=== PATIENT | male | born 1965 | race Caucasian/White ===

== ENCOUNTER 2024-04-07 08:41 | Emergency (ER) | payer OTHER, SELFPAY ==
--- NOTE | ~2024-04-07 | XR_ITS ---
EXAMINATION: XR chest 2V DATE: 04/07/2024 09:27 INDICATION: Cough. TECHNIQUE: Frontal and lateral views of the chest were obtained. COMPARISON: None. FINDINGS: There are airspace opacities in left upper lobe. No pleural effusion or pneumothorax. The h eart size is normal. IMPRESSION: 1. Airspace opacities in left upper lobe, consistent with pneumonia. Follow-up radiographs are recomm ended to confirm resolution. Reviewed, dictated and finalized at location A. [employer] IMPRESSION: 1. Airspace opacities in left upper lobe, consistent with pneumonia. Follow-up radiographs are recommended to confirm resolution.
[2024-04-07 08:46] VITALS: BP 143/80; PULSE 88; RESP 24; TEMP 37.3; O2SAT 91
[2024-04-07 08:58] VITALS: BP 143/80; PULSE 88; RESP 24; TEMP 37.3; O2SAT 91
--- NOTE | 2024-04-07 08:58 | ED_ITS ---
HPI - SOB/Dyspnea General Chief Complaint: Shortness of Breath/Dyspnea Stated Complaint: Cough/Shortness of Breath Time Seen by Provider: 04/07/24 08:58 Source: patient and RN notes reviewed Mode of arrival: ambulatory Limitations: no limitations History of Present Illness HPI Narrative: 58-year-old male presents with concern of for shortness of breath, cough for 2 days. Reports family members have had similar symptoms. He reports he had pneumonia in January that he was treated with a Z-Bhavesh with and I did not work so we had to get doxycycline. He reports he carries a pulse ox with him to monitor his oxygen level since he had pneumonia in January. He reports typically his oxygen level is 95-98 when he is feeling well. He denies fever. Reports cough and shortness of breath. MD elicited complaint: shortness of breath Related Data Home Medications Medication Instructions Recorded Confirmed albuterol sulfate 90 mcg/actuation inhalation 04/07/24 aerosol inhaler amlodipine 2.5 mg tablet mg 04/07/24 atorvastatin 40 mg tablet mg 04/07/24 carvedilol 6.25 mg tablet mg 04/07/24 clopidogrel 75 mg tablet mg 04/07/24 fluticasone furoate 100 inhalation 04/07/24 mcg-vilanterol 25 mcg/dose inhalation powder (Breo Ellipta) hydrocodone 10 mg-acetaminophen tablet 04/07/24 325 mg tablet lisinopril 20 mg tablet mg 04/07/24 zolpidem 10 mg tablet mg 04/07/24 Allergies Allergy/AdvReac Type Severity Reaction Status Date / Time Penicillins Allergy Unknown Verified 04/07/24 08:54 Review of Systems Review of Systems: CONSTITUTIONAL: Denies malaise, chills, sweats, or fever. EYES: Denies visual changes, redness, or discharge. ENT: Denies rhinorrhea, congestion, sinus pain, otalgia and sore throat. CARDIOVASCULAR: Denies chest pain, palpitations, or edema. RESPIRATORY: Reports cough, situational dyspnea. GASTROINTESTINAL: Denies abdominal pain, nausea, vomiting, diarrhea SKIN: Denies rash or itching. MUSCULOSKELETAL: Denies myalgia. NEUROLOGIC: Denies headache. All systems reviewed & are unremarkable except as noted in HPI and below PMFSH Comments At time of signature, agree with nursing past medical, surgical, social and family history. There is no relevant family history pertinent to the presenting complaint Exam Narrative: GENERAL: Well-appearing, well-nourished, and in no acute distress. HEAD: Normocephalic EYES: PERRLA, conjunctivae clear ENT: Nares clear. Mucous membranes moist. TM pearly walton with sharp light reflex bilaterally; no tragal tenderness. Oropharynx not erythematous without lesions. Tonsils not enlarged and without exudate, no drooling, no hoarseness, no trismus, uvula midline. NECK: Supple. No lymphadenopathy CHEST: Scattered wheeze and rhonchi, aeration is fair. No rales, or stridor. No respiratory distress, speaks in full sentences. HEART: Regular rate and rhythm. No murmur heard. SKIN: Warm, dry, no rash. NEURO: Alert and oriented x3. PSYCH: Normal mood and affect Course Course Emergency Course: Patient is aware of diagnosis, understands and agrees to treatment plan. Anticipatory guidance given. Patient agrees to follow-up as directed and is aware of reasons to seek care at the emergency department. Portions of this record may have been created with voice recognition software Level of Care: Express Care Visit Reevaluation(s) Reevaluation #1: Wheezing is improved, aeration is improved after DuoNeb. Patient remains on 2 L nasal cannula. Patient's pulse ox is 93 on 2 L nasal cannula. I advised patient of the finding of pneumonia on his x-ray, advised him that he should go to the emergency room due to his pulse ox of 93 on 2L oxygen. Patient reports that he goes to the emergency room all the time and leaves AMA, he is refusing going to the emergency room at this time. I advised him that if his symptoms do not improve or worsen he needs to go to the emergency room. Patient has a pulse oximeter that he carries with him and monitors his pulse ox regularly, I advised and his pulse ox remains below 90 he needs to go to the emergency room. He expresses understanding. Patient has nebulizer and inhaler at home and says he has plenty of solution for the nebulizer. Date: 04/07/24 Time: 09:36 Vital Signs Vital signs: Vital Signs Temperature 99.2 F 04/07/24 08:46 Pulse Rate 88 04/07/24 08:46 Respiratory Rate 24 H 04/07/24 08:46 Blood Pressure 143/80 H 04/07/24 08:46 Pulse Oximetry 91 04/07/24 08:46 Oxygen Flow Rate 2 04/07/24 08:46 Temperature 99.2 F 04/07/24 08:58 Pulse Rate 88 04/07/24 08:58 Respiratory Rate 24 H 04/07/24 08:58 Blood Pressure 143/80 H 04/07/24 08:58 Pulse Oximetry 91 04/07/24 08:58 Oxygen Flow Rate 2 04/07/24 08:58 Reviewed. MDM - SOB/Dyspnea Lab Data Attestation: I reviewed the patient's lab results. Imaging Data My impression: Images reviewed, interpreted by radiologist, agree, see report. Radiologist's impression: EXAMINATION: XR chest 2V DATE: 04/07/2024 09:27 INDICATION: Cough. TECHNIQUE: Frontal and lateral views of the chest were obtained. COMPARISON: None. FINDINGS: There are airspace opacities in left upper lobe. No pleural effusion or pneumothorax. The heart size is normal. IMPRESSION: 1. Airspace opacities in left upper lobe, consistent with pneumonia. Follow-up radiographs are recommended to confirm resolution. Critical Care Time Critical Care Time Critical Care Time: No Discharge Plan Discharge Clinical Impression: Pneumonia Patient Disposition: Home, Self-Care Condition: Stable Instructions: Antibiotic Form, Pneumonia (ED) Additional Instructions: Pneumonia is a lung infection that can cause a fever, cough, and trouble b reathing. Please continue all antibiotics as directed until complete. Nutrition is important - eat small frequent meals. Get lots of rest and drink fluids. Call your Primary Care Doctor upon arrival home from the hospital and make a follow- up appointment in 3-5 days. If your cough worsens, you develop a persistent fever you develop shaking chills, a fast heartbeat, trouble breathing and/or feel you are are breathing much faster than usual, call your Primary Care Doctor or go to the ER. Make sure you wash your hands frequently. Please continue to monitor yourpulse ox level. If it is below 90 you should go to the emergency room. If your symptoms worsen or do not improve you should go to the emergency room. Prescriptions: New prednisone 20 mg tablet 40 mg PO DAILY 5 Days Qty: 10 0RF levofloxacin 750 mg tablet 750 mg PO DAILY 7 Days Qty: 7 0RF No Action atorvastatin 40 mg tablet carvedilol 6.25 mg tablet lisinopril 20 mg tablet amlodipine 2.5 mg tablet clopidogrel 75 mg tablet hydrocodone-acetaminophen 10-325 mg tablet zolpidem 10 mg tablet albuterol sulfate 90 mcg/actuation HFA aerosol inhaler INHALATION fluticasone furoate-vilanterol [Breo Ellipta] 100-25 mcg/dose blister with device INHALATION Follow-up/Referrals: PHYSICIAN NOT ON STAFF,NONSTAFF [Primary Care Provider] - Time of Disposition: 09:41
[2024-04-07] MEDS: IPRATROPIUM 0.5 MG/ALBUTEROL SULFATE 2.5 MG AMPUL.NEB 3 ML INHALATION (09:07)
[2024-04-07 09:20] VITALS: PULSE 88; RESP 18; O2SAT 93
--- NOTE | 2024-04-07 09:22 | PC.NURSE ---
After treatment SPO2 91% increase O2 to 3L per NC
== END 2024-04-07 09:48 | disposition home or self-care (01) ==
PROVIDERS: Emergency Provider Nurse Practitioner
DX: J18.9 Pneumonia, unspecified organism (principal); J44.9 Chronic obstructive pulmonary disease, unspecified; I10 Essential (primary) hypertension; E78.00 Pure hypercholesterolemia, unspecified; Z86.73 Personal history of transient ischemic attack (TIA), and cerebral infarction without residual deficits; Z86.16 Personal history of COVID-19
CPT/HCPCS: 71046; 94640; 99213; G0463

== ENCOUNTER 2024-06-30 11:06 | Emergency (ER) | payer OTHER, SELFPAY ==
--- NOTE | ~2024-06-30 | XR_ITS ---
EXAMINATION: XR chest 2V DATE: 06/30/2024 12:44 INDICATION: Shortness of breath. Cough. TECHNIQUE: Frontal and lateral views of the chest were obtained. COMPARISON: Chest 2 views 04/07/2024 FINDINGS: There are airspace opacities in left upper lobe. No pleural effusion or pneumothorax. The h eart size is normal. IMPRESSION: 1. Persistent airspace opacities in left upper lobe, consistent with pneumonia. Chest CT with contras t is recommended to exclude left hilar mass. Reviewed, dictated and finalized at location A. EGE SERVICE OFFICER IMPRESSION: 1. Persistent airspace opacities in left upper lobe, consistent with pneumonia. Chest CT with contrast is recommended to exclude left hilar mass.
[2024-06-30 11:11] VITALS: BP 136/85; PULSE 82; RESP 16; TEMP 36.3; O2SAT 96
--- NOTE | 2024-06-30 12:32 | ED_ITS ---
HPI - URI/Sore Throat General Chief Complaint: Upper Respiratory Infection Stated Complaint: Shortness of Breath/Cough/Runny Nose Time Seen by Provider: 06/30/24 12:10 Source: patient, RN notes reviewed and old records reviewed Mode of arrival: ambulatory Limitations: no limitations History of Present Illness HPI Narrative: 59 year old male who presents to [facility] care with complaints of feeling some shortness of breath and having cough since Sunday with increased wheezing noted. Patient reports that he has history of asthma and also COPD and he has been using his inhalers as prescribed. Patient reports that he has felt hot and cold but has not had a fever. Patient reports that he had Pneumonia in March and was treated with 2 different antibiotics with Doxycycline finally clearing pneumonia. Patient reports that he did quit smoking in March after smoking for many years. MD elicited complaint: cough and other (shortness of breath decreased appetite.) Pertinent past history: pneumonia, COPD and asthma Onset (ago): day(s) (4) Consistency: constant Severity: moderate Able to tolerate fluids by mouth: Yes Treatments prior to arrival: other (inhalers) Related Data Home Medications ?Medication ?Instructions ?Recorded ?Confirmed ?Last Taken ?Type albuterol sulfate 90 mcg/actuation inhalation 04/07/24 Unknown History aerosol inhaler amlodipine 2.5 mg tablet mg 04/07/24 Unknown History atorvastatin 40 mg tablet mg 04/07/24 Unknown History carvedilol 6.25 mg tablet mg 04/07/24 Unknown History clopidogrel 75 mg tablet mg 04/07/24 Unknown History fluticasone furoate 100 inhalation 04/07/24 Unknown History mcg-vilanterol 25 mcg/dose inhalation powder (Breo Ellipta) hydrocodone 10 mg-acetaminophen tablet 04/07/24 Unknown History 325 mg tablet zolpidem 10 mg tablet mg 04/07/24 Unknown History ipratropium 20 mcg-albuterol 100 inhalation 06/30/24 Unknown History mcg/actuation mist for inhalation (Combivent Respimat) pioglitazone 15 mg tablet mg 06/30/24 Unknown History Allergies Allergy/AdvReac Type Severity Reaction Status Date / Time Penicillins Allergy Unknown Verified 06/30/24 11:19 Review of Systems Review of Systems: CONSTITUTIONAL: Reports malaise, has felt hot and cold with no known fevers. EYES: Denies visual changes, redness, or discharge. ENT: Reports rhinorrhea, congestion,no sinus pain, no otalgia and no sore throat. CARDIOVASCULAR: Denies chest pain, palpitations, or edema. RESPIRATORY: Reports cough.?with some increased dyspnea. GASTROINTESTINAL: Denies abdominal pain, nausea, vomiting, diarrhea, reports [id number] appetite SKIN: Denies rash or itching. MUSCULOSKELETAL: Denies myalgia. NEUROLOGIC: Denies headache. All systems reviewed & are unremarkable except as noted in HPI and below PMFSH Past Medical History Medical History (Updated 07/02/24 @ 11:47 by Merle Alvarez NP) Diabetes Elevated cholesterol Hypertension CVA (cerebral vascular accident) COPD (chronic obstructive pulmonary disease) Asthma Social History Social History (Updated 07/02/24 @ 11:48 by Merle Alvarez NP) Smoking status: Former smoker Tobacco type: cigarettes Additional smoking assessment comments: quit in March of 2024 after smoking many years Alcohol intake: current Alcohol use details: social Substance use type: does not use Gender identity (if verbalized by the patient): Male Comments At time of signature, agree with nursing past medical, surgical, social and family history. There is no relevant family history pertinent to the presenting complaint Exam Narrative: GENERAL: ill-appearing, well-nourished, and in no acute distress. HEAD: Normocephalic EYES: PERRLA, conjunctivae clear ENT: Nares clear, turbinates edematous and erythematous, clear discharge. Mucous membranes moist. TM pearly [place] with dull light reflex bilaterally; no tragal tenderness. Oropharynx erythematous without lesions. Tonsils not enlarged and without exudate, no drooling, no hoarseness, no trismus, uvula midline.post nasal drainage NECK: Supple. No lymphadenopathy CHEST: Scattered wheezing with rhonchi left lung [place]., breath sounds equal.+ wheezing,+ left lung [place] rhonchi, no rales, or stridor. No respiratory distress, speaks in full sentences. reports feels shortness of breath no tachypnea. SAO2 96% on room air HEART: Regular rate and rhythm. No murmur heard. SKIN: Warm, dry, no rash. NEURO: Alert and oriented x3. PSYCH: Normal mood and affect anxious Course Course Emergency Course: Patient is aware of diagnosis, understands and agrees to treatment plan.? Anti cipatory guidance given.? Patient agrees to follow-up as directed and is aware of reasons to seek care at the emergency department. Portions of this record may have been created with voice recognition software Level of Care: Express Care Visit Vital Signs Vital signs: Vital Signs Temperature 36.3 C L 06/30/24 11:11 Pulse Rate 82 06/30/24 11:11 Respiratory Rate 16 06/30/24 11:11 Blood Pressure 136/85 06/30/24 11:11 Pulse Oximetry 96 06/30/24 11:11 Oxygen Delivery Room Air 06/30/24 11:11 Temperature 36.3 C L 06/30/24 11:11 Pulse Rate 82 06/30/24 11:11 Respiratory Rate 16 06/30/24 11:11 Blood Pressure 136/85 06/30/24 11:11 Pulse Oximetry 96 06/30/24 11:11 Oxygen Delivery Room Air 06/30/24 11:11 Reviewed MDM - URI/Sore Throat MDM Narrative Medical decision making narrative: Differential diagnosis considered: Azul virus, strep pharyngitis, allergic rhinitis, upper respiratory tract infection, sinusitis, rhinosinusitis, nasopharyngitis. viral pharyngitis, otitis media, otitis externa, pneumonia, bronchitis, viral cough syndrome, viral syndrome, and influenza.? Exam findings show no acute concerns or changes; patient is non-toxic appearing and is in no distress.? Patient is appropriate for outpatient treatment and follow- up.Reviewed results of CT scan and states he will follow up with his PCP in regards of getting CT. 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 Differential Diagnosis Differential diagnosis: Likely upper respiratory infection, viral infection, bronchitis, influenza and other (COVID acute cough, pneumonia) Medical Records Attestation: I reviewed the patient's medical records. Lab Data Attestation: I reviewed the patient's lab results. Lab results narrative: Influenza A negative, Influenza B negative, COVID antigen negative Labs: Lab Results 06/30/24 Range/Units 11:18 POC Influenza A Ag Negative (Negative) POC Influenza B Ag Negative (Negative) POC SARS CoV-2 Ag Negative (Negative) reviewed Imaging Data Attestation: I personally reviewed and interpreted this imaging study as follows: My impression: left upper lobe pneumonia recommend CT scan to exclude left hilar mass Radiologist's impression: [facility] [address] [place] [address] XRay Report Signed Patient: Vidal Hendricks : 1965 MR#: [id number] Age: 59 Acct:[id number] Loc: [facility] ADM Date: 06/30/24Attending Dr: Ordering Physician: Merle Alvarez APRN Date of Service: 06/30/24 Procedure(s): XR chest 2V Accession Number(s): [id number] cc: Merle Alvarez APRN~ EXAMINATION: XR chest 2V DATE: 06/30/2024 12:44 INDICATION: Shortness of breath. Cough. TECHNIQUE: Frontal and lateral views of the chest were obtained. COMPARISON: Chest 2 views 04/07/2024 FINDINGS: There are airspace opacities in left upper lobe. No pleural effusion or pneumothorax. The heart size is normal. IMPRESSION: 1. Persistent airspace opacities in left upper lobe, consistent with pneumonia. Chest CT with contrast is recommended to exclude left hilar mass. Reviewed, dictated and finalized at location A. [employer] ASSISTANT Please be advised this is a medical document. It is intended for [id number] communication. It is written in medical language and may contain unfamiliar abbreviations or verbiage. Medical documents are intended to carry relevant information, facts as evident, and the clinical opinion of the practitioner at the time of the encounter. This report may have been done utilizing a voice recognition system. Attempts have been made to correct errors. However, there may be uncorrected grammatical, spelling, and recognition errors present. The file time of this note does not necessarily represent the time of service. Dictated By: Ulisses Chambers MD 06/30/24 1247 Signed By: <Electronically signed by Ulisses Chambers MD in OV> Critical Care Time Critical Care Time Critical Care Time: No Discharge Plan Discharge Clinical Impression: Left upper lobe pneumonia Qualifiers: Pneumonia type: due to unspecified organism Qualified Code(s): J18.9 - Pneumonia, unspecified organism Patient Disposition: Home, Self-Care Condition: Stable Instructions: Antibiotic Form, Pneumonia (ED) Additional Instructions: Increase fluids especially juices and water [id number] cough and cold medicine of your choice for your symptoms Mucinex daily make sure you are drinking plenty of fluids with this med Continue your inhaler/nebulizer as directed Steroids as directed--take with food heat to the face 20-30 minutes 4-6 times a day for pain Salt water gargles, throat lozenges or throat sprays as desired Antibiotic as directed--finished the medication If your symptoms persist, change or worsen significantly before you can contact your personal physician then please, without delay, go to the emergency department for further evaluation. Follow-up with PCP in 7-10 days or sooner if needed Follow up with PCP soon in regards to your blood pressure which is elevated above threshold for referral. Blood pressure above 120/80 may indicate pre- hypertension. Blood pressure 136/85 Patient Language: [place] Prescriptions: New prednisone 20 mg tablet 20 mg PO BID Qty: 10 0RF doxycycline hyclate 100 mg tablet 100 mg PO BID Qty: 20 0RF benzonatate 200 mg capsule 200 mg PO TID PRN (Reason: cough) Qty: 20 0RF No Action atorvastatin 40 mg tablet carvedilol 6.25 mg tablet amlodipine 2.5 mg tablet clopidogrel 75 mg tablet hydrocodone-acetaminophen 10-325 mg tablet zolpidem 10 mg tablet albuterol sulfate 90 mcg/actuation HFA aerosol inhaler INHALATION fluticasone furoate-vilanterol [Breo Ellipta] 100-25 mcg/dose blister with device INHALATION pioglitazone 15 mg tablet Combivent Respimat 20-100 mcg/actuation mist INHALATION Follow-up/Referrals: PHYSICIAN NOT ON STAFF,NONSTAFF [Primary Care Provider] - Time of Disposition: 13:04 Quality Darcie Coma Scale Eyes: Open Verbal: Oriented and Alert Motor: Follows Commands [place] Coma Total Score: 15
[2024-06-30 13:36] LABS: EDCOVIDSCREEN Negative (Negative); EDINFLUASCREEN Negative (Negative); EDINFLUBSCREEN Negative (Negative)
--- OUTSIDE RECORDS SUMMARY | 2024-06-30 14:10 | XMS_ITS | Clinical Summary ---
Author Organization [email or web address] Address [address] [place] [address] Care Team Providers Care Small Products Ii Assembler Name Role Phone Obey Todd MD Unavailable Kan Lanier MD Primary Care Provider [phone] Azul Correa OD Unavailable Source Comments [email or web address],non-owned Affiliates and Associated Physician Practices is amultiple site organization consisting of ambulatory clinics and hospital sitesin [place], [place], [place] and [place]. This disclosure is being madepursuant to the Care Everywhere program and may not contain all information available regarding this patient. Last updated 18.[email or web address] Allergies Active Allergy Reactions Criticality Noted Date Comments Amoxicillin 03/15/2017 Nortriptyline Psychiatric Medium 03/15/2017 Penicillins Anaphylaxis High 09/29/2016 Tapentadol Vision Changes Medium 05/22/2017 splits vision Medications * Be aware that medications may not be up to date on this document. Alwaysverify current medications with the patient. Medication Sig Dispensed Refills Start Date End Date Status HYDROcodone-acet aminophen (NORCO) 10-325 MG tablet Take 1 (one) tablet by mouth 4 times daily as needed 11/17/2017 Active atorvastatin (Lipitor) 40 MG tablet Take 1 (one) tablet by mouth at bedtime 90 tablet 3 10/01/2023 Active carvedilol (Coreg) 6.25 MG tablet Take 1 (one) tablet by mouth once daily 90 tablet 1 10/01/2023 Active albuterol HFA (Proventil; Ventolin; Proair) 108 (90 Base) MCG/ACT inhaler INHALE 2 PUFFS BY MOUTH EVERY 6 HOURS NEEDED 18 g 01/02/2024 Active clopidogrel (plaVIX) 75 MG tablet TAKE 1 TABLET BY MOUTH DAILY 90 tablet 05/05/2024 Active Breo Ellipta 100-25 MCG/ACT inhaler INHALE 1 PUFF BY MOUTH DAILY 180 Each 05/16/2024 Active zolpidem (Ambien) 10 MG tabletIndication s:Insomnia, unspecified type Take 1 (one) tablet by mouth nightly as needed For insomnia. 90 tablet 05/20/2024 Active amLODIPine (Norvasc) 2.5 MG tabletIndication s:Lipid screening TAKE 1 TABLET BY MOUTH TWICE DAILY 30 tablet 06/13/2024 Active albuterol-ipratr opium (Combivent Respimat) 20-100 MCG/ACT inhaler Inhale 2 (two) puffs by mouth every 6 hours as needed for Wheezing (or chronic obstructive lung disease) 4 g 06/19/2024 Active Combivent Respimat 20-100 MCG/ACT inhaler INHALE 2 PUFFS BY MOUTH EVERY 6 HOURS NEEDED FOR WHEEZING OR CHRONIC OBSTRUCTIVE LUNG DISEASE 4 g 1 06/19/2024 Active pioglitazone (Actos) 15 MG tablet TAKE 1 TABLET BY MOUTH EVERY DAY 30 tablet 06/25/2024 Active amLODIPine (Norvasc) 2.5 MG tabletIndication s:Lipid screening Take 1 (one) tablet by mouth 2 times daily 180 tablet 1 10/01/2023 5 Discontinued Combivent Respimat 20-100 MCG/ACT inhaler INHALE 2 PUFFS BY MOUTH EVERY 6 HOURS NEEDED FOR WHEEZING OR CHRONIC OBSTRUCTIVE LUNG DISEASE 4 g 1 04/22/2024 5 Discontinued pioglitazone (Actos) 15 MG tablet TAKE 1 TABLET BY MOUTH EVERY DAY 30 tablet 05/16/2024 5 Discontinued Active Problems Problem Noted Date Diagnosed Date Opioid use 01/18/2024 Controlled type 2 diabetes m ellitus with microalbuminuria, without long-term current use of insulin 09/21/2023 Hyperlipidemia 08/17/2021 Type 2 diabetes mellitus wit h hyperglycemia, without long-term current use of insulin 01/21/2021 Occlusion of right vertebral artery 08/13/2020 Cerebral aneurysm, nonruptured 07/05/2020 Thoracoabdominal aortic aneurysm (TAAA) without rupture 03/20/2019 Screening for colorectal cancer 08/27/2018 Cervical spinal stenosis 05/22/2017 HTN (hypertension), benign 03/15/2017 Chronic neck pain 03/15/2017 Tobacco abuse 03/15/2017 Resolved Problems Problem Noted Date Diagnosed Date Resolved Date Opioid dependence with opioi d-induced disorder 01/18/2024 01/18/2024 Encounters Date Type Department Care Team Description 06/23/[address] [address] Kan Lanier MD Refill Request 06/19/[address] [address] Kan Lanier MD MEDICATION REFILL 06/18/[address] [address] Desiree Knight, AMBULETTE DRIVER-SOLICITING FREIGHT AGENT Refill Request 06/17/[address] [address] Kan Lanier MD Refill Request 06/13/[address] [address] Kan Lanier MD Refill Request 05/20/[address] [address] Kan Lanier MD MEDICATION REFILL 05/15/[address] [address] Kan Lanier MD Refill Request 05/09/[address] [address] Kan Lanier MD Refill Request 05/02/2024 Refill [facility] [address] [facility] [facility] [place] [address] Kan Lanier MD Refill Request 04/19/2024 Refill [facility] [address] [facility] [place] [address] Desiree Knight, AMBULETTE DRIVER-SOLICITING FREIGHT AGENT Refill Request from Last 3 Months Immunizations Name Administration Dates Next Due INFLUENZA VACCINE, TRIV. (AF LURIA, FLUZONE TRIVALENT; 6MO+) (IIV3) 01/12/2010 COVID PFIZER 12+YR 30MCG/0.3mL 03/23/2023 COVID PFIZER BIVALENT 12Y+ 30mcg/0.3ML Covid Moderna primary monova lent 12+ yr 0.5mL 05/04/2021,10/25/2020,09/27/2020 INFLUENZA VACCINE 03/14/2018 INFLUENZA VACCINE, CELL CULT URE, QUADR. (FLUCELVAX QUADRIVALENT; 6MO+) (CCIIV4) 05/04/2021 INFLUENZA VACCINE, QUADR. (A FLURIA, FLUZONE QUADRIVALENT; 6MO+) (IIV4) 03/15/2017 INFLUENZA VACCINE, QUADR. (F LUZONE; FLULAVAL; FLUARIX; AFLURIA QUADRIVALENT; 6MO+), 0.5 ML (IIV4) 03/23/2023,02/28/2022,02/19/2019 PNEUMOCOCCAL PPSV23 03/15/2017,09/11/2008 TD (AGE 7-ADULT) 05/14/2003 TDAP (7yrs+) 10/30/2015,03/15/2015 iNFLUENZA VACCINE, RECOM-THOMPSON, QUADR. (FLUBLOCK QUADRIVALENT; 18Y+) (RIV4) 04/07/2020 Family History Relation Name Status Comments Brother Alive Father Alive Mother Alive Sister Alive Social History Tobacco Use Types Packs/Day Years Used Date Smoking Tobacco: Every Day Cigarettes 1 10 Started: 2002; Last attempted to quit: 2012 Smokeless Tobacco: Never Tobacco Cessation:Ready to Q uit: Not Asked; Counseling Given: Not Answered Alcohol Use Standard Drinks/Week Comments No 0 (1 standard drink = 0.6 oz pur e alcohol) PHQ-2 Answer Date Recorded Patient Health Questionnaire-2 Score 0 01/17/2024 Sex and Gender Information Value Date Recorded Sex Assigned at Not on file Gender Identity Not on file Sexual Orientation Not on file Last Filed Vital Signs Vital Sign Reading Time Taken Comments Blood Pressure 124/70 01/18/2024 9:52 AM CDT Pulse 80 01/18/2024 9:52 AM CDT Temperature 36.6 C (97.8 F) 04/13/2022 3:02 PM CANTEEN ATTENDANT Respiratory Rate 16 12/29/2020 2:27 PM CDT Oxygen Saturation 96% 01/18/2024 9:52 AM CDT Inhaled Oxygen Concentration - - Weight 78.9 kg (174 lb) 01/18/2024 9:52 AM CDT Height 177.8 cm (5' 10 ) 01/18/2024 9:52 AM CDT Body Mass Index 24.97 01/18/2024 9:52 AM CDT Plan of Treatment Health Maintenance Due Date Last Done Comments COLOGUARD (AGES 45-75) - COLON CA SCREENING 1965 CT COLONOGRAPHY - COLON CA SCREENING 1965 FIT - COLON CA SCREENING 1965 FLEX SIG - COLON CA SCREENING 1965 ZOSTER VACCINE (1 of 2) 2013 PNEUMOCOCCAL VACCINE 50+ (2 of 2 - PCV) 03/15/2018 03/15/2017, 09/11/2008 Respiratory Syncytial Virus (RSV) Vaccine Pt: or over 60 yrs (1 - Risk 60-74 years 1-dose series) 2023 COLON MONITORING 09/10/2023 09/09/2018, 09/09/2018 Colorectal Cancer Screening 09/10/2023 COVID-19 VACCINE ( season) 2024 03/23/2023, 03/01/2022, 05/04/2021, Additional history exists INFLUENZA VACCINE (#1) 2024 , 02/28/2022, 05/04/2021, Additional history exists DIABETES-HGB A1C 03/23/2024 09/21/2023, , 09/19/2022, Additional history exists DEPRESSION SCREENING 05/14/2024 09/21/2023, 09/19/2022, 02/28/2022 DIABETES - URINE PROTEIN SCREENING 05/14/2024 09/21/2023, 04/26/2023, 09/19/2022, Additional history exists DIABETES RETINOPATHY SCREENING 06/06/2024 06/06/2022 DIABETES-FOOT EXAM WITH MONOFILAMENT 09/20/2024 09/21/2023 DIABETES-SERUM CREATININE 12/28/20242023, 12/29/2023, 09/21/2023, Additional history exists DTAP/TDAP/TD VACCINES (4 - Td or Tdap) 10/29/2025 10/30/2015, 03/15/2015, 05/14/2003 COLONOSCOPY - COLON CA SCREENING 09/09/2028 09/09/2018, 09/09/2018 HEPATITIS C SCREENING Completed 03/15/2017 HIV SCREENING Completed 09/21/2023 HEPATITIS B VACCINE Aged Out No longe r eligible based on patient's age to complete this topic HIB VACCINE Aged Out No longer eligi ble based on patient's age to complete this topic HPV VACCINE Aged Out No longer eligi ble based on patient's age to complete this topic MENINGOCOCCAL (Group B) VACCINE Aged Out No longer eligible based on patient's age to complete this topic MENINGOCOCCAL VACCINE Aged Out No justin shirley eligible based on patient's age to complete this topic Goals Goal Patient Goal Type Associated Problems Recent Progress Patient-Stated? Author Blood Pressure < 140/90 Blood Pressure 124/70(2023 9:52 AM CDT) No Meseret Perez MA Quit smoking / using tobacco Lifestyle Not on track( 018 8:12 AM CDT) No Meseret Perez MA Procedures Procedure Name Priority Date/Time Associated Diagnosis Comments MICROALB/CREAT RATIO URINE RANDOM PANEL Routine 09/21/2023 8:59 AM CDT Controlled type 2 diabetes mellitus with hyperglycemia, without long-term current use of insulin (HCC) GENERAL HEALTH PANEL Routine 09/21/2023 8:59 AM CDT HTN (hypertension), benign Controlled type 2 diabetes mellitus with hyperglycemia, without long-term current use of insulin (HCC) Hyperlipidemia, unspecified hyperlipidemia type Preventative health care HEMOGLOBIN A1C Routine 09/21/2023 8:59 AM CDT Controlled type 2 diabetes mellitus with hyperglycemia, without long-term current use of insulin (HCC) Preventative health care HIV-1 HIV-2 ANTIBODY + HIV P24 AG PANEL Routine 09/21/2023 8:59 AM CDT Preventative health care EYE EXAM 06/06/2022 ENDOSCOPY, COLON, SCREENING Routine 09/09/2018 2:28 PM CDT Screening for colorectal cancer HEPATITIS C ANTIBODY Routine 03/15/2017 8:59 AM CDT Encounter for hepatitis C screening test for low risk patient from Last 3 Months or Most Recently Relevant to Health Maintenance Results * HIV-1 HIV-2 ANTIBODY + HIV P24 AG PANEL (09/21/2023 8:59 AM CDT) HIV Screen 4th Generation w Reflex Non Reactive Non Reactive [facility] ACCOUNT BILL Comment: HIV Negative HIV-1/HIV-2 antibodies and HIV-1 p24 antigen were NOT detected. There is no laboratory evidence of HIV infection. FASTING Blood BLOOD SPECIMEN / Unknown 09/21/2023 8:59 AM CDT 09/21/2023 Narrative Resulting Agency Comment [facility]: [facility] [address] [facility] [phone] Kan Lanier MD LAB - CHEMISTRY OR DERABLES [facility] ACCOUNT BILL [address] [place] [address] * (ABNORMAL) GENERAL HEALTH PANEL (09/21/2023 8:59 AM CDT) Glucose 139(H) 70 - 99 mg/dL [facility] ACCOUNT BILL BUN 8 8 - 27 mg/dL [facility] ACCOUNT BILL Creatinine 0.93 0.76 - 1.27 mg/dL [facility] ACCOUNT BILL eGFR by CKD-EPI 94 >59 mL/min/1. 73 [facility] ACCOUNT BILL BUN/Creatinine Ratio 9(L) 10 - 24 [facility] ACCOUNT BILL Sodium 138 134 - 144 mmol/L [facility] ACCOUNT BILL Potassium 4.7 3.5 - 5.2 mmol/L [facility] ACCOUNT BILL Chloride 98 96 - 106 mmol/L [facility] ACCOUNT BILL CO2 27 20 - 29 mmol/L [facility] ACCOUNT BILL Calcium 9.8 8.6 - 10.2 mg/dL [facility] ACCOUNT BILL Protein Total 7.2 6.0 - 8.5 g/dL [facility] ACCOUNT BILL Albumin 4.2 3.8 - 4.9 g/dL [facility] ACCOUNT BILL Globulin Total 3.0 1.5 - 4.5 g/dL [facility] ACCOUNT BILL Albumin/Globulin Ratio 1.4 1.2 - 2.2 [facility] ACCOUNT BILL Bilirubin Total 0.4 0.0 - 1.2 mg/dL [facility] ACCOUNT BILL Alkaline Phosphatase 196(H) 44 - 121 IU/L [facility] ACCOUNT BILL AST 10 0 - 40 IU/L [facility] ACCOUNT BILL ALT 8 0 - 44 IU/L [facility] ACCOUNT BILL TSH 1.470 0.450 - 4.500 uIU/mL [facility] ACCOUNT BILL WBC 12.7(H) 3.4 - 10.8 x10E3/uL [facility] ACCOUNT BILL RBC 4.44 4.14 - 5.80 x10E6/uL [facility] ACCOUNT BILL Hemoglobin 13.9 13.0 - 17.7 g/dL [facility] ACCOUNT BILL Hematocrit 43.1 37.5 - 51.0 % [facility] ACCOUNT BILL MCV 97 79 - 97 fL [facility] ACCOUNT BILL MCH 31.3 26.6 - 33.0 pg [facility] ACCOUNT BILL MCHC 32.3 31.5 - 35.7 g/dL [facility] ACCOUNT BILL RDW 12.3 11.6 - 15.4 % [facility] ACCOUNT BILL Platelet Count 360 150 - 450 x10E3/uL [facility] ACCOUNT BILL Granulocytes % 70 Not Estab. % [facility] ACCOUNT BILL Lymphocytes % 12 Not Estab. % [facility] ACCOUNT BILL Monocytes % 6 Not Estab. % [facility] ACCOUNT BILL Eosinophils % 11 Not Estab. % [facility] ACCOUNT BILL Basophils % 1 Not Estab. % [facility] ACCOUNT BILL Immature Cells NOT AVAILABLE [facility] ACCOUNT BILL Comment:Result cannot be obt ained for this observation. Granulocytes Absolute 8.9(H) 1.4 - 7.0 x10E3/uL [facility] ACCOUNT BILL Lymphocytes Absolute 1.6 0.7 - 3.1 x10E3/uL [facility] ACCOUNT BILL Monocytes Absolute 0.8 0.1 - 0.9 x10E3/uL [facility] ACCOUNT BILL Eosinophils Absolute 1.4(H) 0.0 - 0.4 x10E3/uL [facility] ACCOUNT BILL Basophils Absolute 0.1 0.0 - 0.2 x10E3/uL [facility] ACCOUNT BILL Immature Granulocytes 0 Not Estab. % [facility] ACCOUNT BILL Immature Granulocytes Absolute 0.0 0.0 - 0.1 x10E3/uL [facility] ACCOUNT BILL nRBC NOT AVAILABLE [facility] ACCOUNT BILL Comment:Result cannot be obt ained for this observation. Comment Hematology NOT AVAILABLE [facility] ACCOUNT BILL Comment: FASTING Result cannot be obtained for this observation. Blood BLOOD SPECIMEN / Unknown 09/21/2023 8:59 AM CDT 09/21/2023 Narrative Resulting Agency Comment Lab Testing performed at: [employer] [id number] Kan Lanier MD LAB - CHEMISTRY OR DERABLES [facility] ACCOUNT BILL [address] [place] [address] * (ABNORMAL) MICROALB/CREAT RATIO URINE RANDOM PANEL (09/21/2023 8:59 AM CDT) Creatinine Urine 43.2 Not Estab. mg/dL [facility] ACCOUNT BILL Microalbumin Urine 102.5 Not Estab. ug/mL [facility] ACCOUNT BILL Microalbumin/Crea tinine Ratio 237(H) 0 - 29 mg/g creat [facility] ACCOUNT BILL Comment: Normal: 0 - 29 Moderately increased: 30 - 300 Severely increased: >300 FASTING Urine URINE SPECIMEN OBTAINED BY CLEAN CATCH PROCEDURE / Unknown 09/21/2023 8:59 AM CDT 09/21/2023 Narrative Resulting Agency Comment Lab Testing performed at: [facility] [address] [facility] [phone] Kan Lanier MD LAB - URINE CHEMIS TRY ORDERABLES Performing Organization Address City/[facility]/ZIP Co de Phone Number [facility] ACCOUNT BILL [address] [place] [address] * (ABNORMAL) HEMOGLOBIN A1C (09/21/2023 8:59 AM CDT) Hemoglobin A1c 7.1(H) 4.8 - 5.6 % [facility] ACCOUNT BILL Comment: . Prediabetes: 5.7 - 6.4 Diabetes: >6.4 Glycemic control for adults with diabetes: <7.0 FASTING Blood BLOOD SPECIMEN / Unknown 09/21/2023 8:59 AM CDT 09/21/2023 Narrative Resulting Agency Comment Lab Testing performed at: [facility] [phone] Kan Lanier MD LAB - CHEMISTRY OR DERABLES Performing Organization Address City/[facility] Co de Phone Number [facility] ACCOUNT BILL [address] [place] [address] * EYE EXAM (06/06/2022) Anatomical Region Laterality Modality Other 06/06/2022 Narrative 06/06/2022 Ordered by an unspecified provider. Scanned Document SCANNING ONLY * ENDOSCOPY, COLON, SCREENING (09/09/2018 2:28 PM CDT) Report Endoscopy POC _ Patient Name: Nisreen Brocko Procedure Date: 09/09/2018 2:28 PM Date of : 1965 Admit Type: Outpatient Age: 53 Gender: Male Attending MD: Percy Gary MD _ Procedure: Colonoscopy Indications: Screening for colorectal malignant neoplasm, This is the patient's first colonoscopy Providers: Percy Gary MD (Doctor) Referring MD: Kan Lanier MD (Referring MD) Medicines: Monitored Anesthesia Care Complications: No immediate complications. Estimated blood loss: None. _ Procedure: Pre-Anesthesia Assessment: - Prior to the procedure, a History and Physical was performed, and patient medications and allergies were reviewed. The patient is competent. The risks and benefits of the procedure and the sedation options and risks were discussed with the patient. All questions were answered and informed consent was obtained. Patient identification and proposed procedure were verified by the physician, the nurse and the payable manager in the procedure room. Mental Status Examination: alert and oriented. Airway Examination: normal oropharyngeal airway and neck mobility. Respiratory Examination: clear to auscultation. CV Examination: normal. Prophylactic Antibiotics: The patient does not require prophylactic antibiotics. Prior Anticoagulants: The patient has taken no previous anticoagulant or antiplatelet agents. ASA Grade Assessment: II - A patient with mild systemic disease. After reviewing the risks and benefits, the patient was deemed in satisfactory condition to undergo the procedure. The anesthesia plan was to use monitored anesthesia care (MAC). Immediately prior to administration of medications, the patient was re-assessed for adequacy to receive sedatives. The heart rate, respiratory rate, oxygen saturations, blood pressure, adequacy of pulmonary ventilation, and response to care were monitored throughout the procedure. The physical status of the patient was re-assessed after the procedure. After I obtained informed consent, the scope was passed under direct vision. Throughout the procedure, the patient's blood pressure, pulse, and oxygen saturations were monitored continuously. The Colonoscope was introduced through the anus and advanced to the cecum, identified by appendiceal orifice and ileocecal valve. The colonoscopy was performed without difficulty. The patient tolerated the procedure well. The quality of the bowel preparation was excellent. The ileocecal valve, appendiceal orifice, and rectum were photographed. Findings: The digital rectal exam was normal. Pertinent negatives include no palpable rectal lesions. The descending colon, transverse colon, ascending colon, cecum, appendiceal orifice and ileocecal valve appeared normal. Three sessile polyps were found in the rectum and sigmoid colon. The polyps were 5 to 8 mm in size. These polyps were removed with a hot snare. Resection and retrieval were complete. Three sessile polyps were found in the rectum and sigmoid colon. The polyps were 2 to 3 mm in size. These polyps were removed with a cold biopsy forceps. Resection and retrieval were complete. _ Impression: - The descending colon, transverse colon, ascending colon, cecum, appendiceal orifice and ileocecal valve are normal. - Three 5 to 8 mm polyps in the rectum and in the sigmoid colon, removed with a hot snare. Resected and retrieved. - Three 2 to 3 mm polyps in the rectum and in the sigmoid colon, removed with a cold biopsy forceps. Resected and retrieved. Recommendation: - Await pathology results. - Resume previous diet. - Continue present medications. - Repeat colonoscopy in 3 years for surveillance if all polyps are adenomatous. - Return to primary care physician as previously scheduled. - Patient has a contact number available for emergencies. The signs and symptoms of potential delayed complications were discussed with the patient. Return to normal activities tomorrow. Written discharge instructions were provided to the patient. Procedure Code(s): --- Professional --- 05429, Colonoscopy, flexible; with removal of tumor(s), polyp(s), or other lesion(s) by snare technique 21261, 59, Colonoscopy, flexible; with biopsy, single or multiple --- Technical --- 03808, Colonoscopy, flexible; with removal of tumor(s), polyp(s), or other lesion(s) by snare technique 15542, 59, Colonoscopy, flexible; with biopsy, single or multiple Diagnosis Code(s): --- Professional --- Z12.11, Encounter for screening for malignant neoplasm of colon K62.1, Rectal polyp D12.5, Benign neoplasm of sigmoid colon --- Technical --- Z12.11, Encounter for screening for malignant neoplasm of colon K62.1, Rectal polyp D12.5, Benign neoplasm of sigmoid colon CPT copyright 2017 [employer]. All rights reserved. The codes documented in this report are preliminary and upon dryerman/woman review may be revised to meet current compliance requirements. Dr. Percy Gary MD Percy Gary MD 09/09/2018 3:42:45 PM This report has been signed electronically. Number of Addenda: 0 Note Initiated On: 09/09/2018 2:28 PM [facility] 09/09/2018 2:28 PM CDT Percy Gary MD GI PROCEDURE ORDERA BLES Performing Organization Address City/[facility]/ZIP Co de Phone Number [facility] [place] [address] * HEPATITIS C ANTIBODY (03/15/2017 8:59 AM CDT) Hepatitis C Antibody Non Reactive Non Reactive [facility] ACCOUNT BILL Comment: Non Reactive - Antibodies to Hepatitis C virus (HCV) were no t detected, result does not exclude early acute HCV infection. FASTING Blood BLOOD SPECIMEN / Unknown 03/15/2017 8:59 AM CDT 03/15/2017 Narrative Resulting Agency Comment [facility] [address] [facility] [phone] Kan Lanier MD LAB - CHEMISTRY OR DERABLES [facility] ACCOUNT BILL [address] [place] [address] from Last 3 Months or Most Recently Relevant to Health Maintenance Care Teams Small Products Ii Assembler Relationship Specialty Start Date End Date Kan Lanier MD [address] [place] [address] PCP - General 04/03/19 Obey Todd MD Anesthesiology-Pain Management 03/15/17 Azul Correa OD [address] [place] [address] Oil Lease Operator 01/18/24
--- OUTSIDE RECORDS SUMMARY | 2024-06-30 14:10 | XMS_ITS | Referral Summary ---
Author Organization [facility] Address [address] [place] [id number] Care Team Providers [facility] Attendant Name Role Phone Kan Lanier MD Primary Care Provider [phone] Oscar Meier VALVE MECHANIC Unavailable [phone] Encounters Date Type Department Care Team Description 06/16/2024 6:46 AM SAFETY AND HEALTH CONSULTANT - 06/16/2024 11:59 PM SAFETY AND HEALTH CONSULTANT Hospital Encounter [facility] [address] [place] [id number] Oscar Meier NP Cervicalgia (Primary Dx); Cervical spinal stenosis; Postlaminectomy syndrome of cervical region Discharge Disposition: Discharge to home or self care 04/14/2024 6:54 AM SAFETY AND HEALTH CONSULTANT - 04/14/2024 11:59 PM SAFETY AND HEALTH CONSULTANT Hospital Encounter [facility] [address] [place] [address] [phone] Oscar Meier NP Cervicalgia (Primary Dx); Cervical spinal stenosis; Spondylosis of cervical joint without myelopathy; Postlaminectomy syndrome of cervical region Discharge Disposition: Discharge to home or self care from Last 3 Months Allergies Active Allergy Reactions Criticality Noted Date Comments Amoxicillin Rash Medium Nortriptyline Vision changes Medium 05/22/2017 Tapentadol Vision changes Medium 05/22/2017 splits vision Penicillins Rash,Shortness of breath High Medications albuterol HFA (PROVENTIL HFA,VENTOLIN HFA,PROAIR HFA) 90 mcg/actuation inhaler Inhale 1 puff every 6 (six) hours as needed 7 Active zolpidem (AMBIEN) 10 mg tabletIndicatio ns:Sleep-Onset Insomnia Take 1 tablet (10 mg total) by mouth nightly 6 Active amLODIPine (NORVASC) 5 mg tablet Take 0.5 tablets (2.5 mg total) by mouth 2 (two) times a day Active Breo Ellipta 100-25 mcg/dose diskus inhaler INHALE 1 PUFF BY MOUTH ONCE DAILY AT THE SAME TIME EACH DAY. RINSE MOUTH AFTER USING. 0 Active atorvastatin (LIPITOR) 40 mg tablet Take 1 tablet (40 mg total) by mouth nightly at bedtime. 1 Active clopidogreL (PLAVIX) 75 mg tablet Take 1 tablet (75 mg total) by mouth daily 1 Active carvediloL (COREG) 6.25 mg tablet TAKE 1 TABLET BY MOUTH TWICE DAILY (WITH MORNING MEAL AND WITH EVENING MEAL) 1 Active pioglitazone (ACTOS) 15 mg tablet 3 Active losartan (COZAAR) 50 mg tablet Take 1 tablet (50 mg total) by mouth daily 4 Active HYDROcodone-eric taminophen ([place]) 10-325 mg per tabletIndicatio ns:Pain Take 1 tablet by mouth every 6 (six) hours as needed for pain 120 tablet 5 07/17/19 25 Active HYDROcodone-eric taminophen ([place]) 10-325 mg per tabletIndicatio ns:Pain Take 1 tablet by mouth every 6 (six) hours as needed for pain 120 tablet 5 08/16/19 25 Active lisinopriL (PRINIVIL,ZESTR IL) 10 mg tablet Take 1 tablet (10 mg total) by mouth daily 3 06/16/19 25 Discontinu ed(Therapy completed) HYDROcodone-eric taminophen ([place]) 10-325 mg per tabletIndicatio ns:Pain Take 1 tablet by mouth every 6 (six) hours as needed for pain 120 tablet 5 06/16/19 25 Discontinu ed(Reorder ) Active Problems Problem Noted Date Diagnosed Date Cerebral aneurysm, nonruptured 07/05/2020 Long-term current use of opiate analgesic 2017 Cervicalgia 05/22/2017 Spondylosis of cervical joint without myelopathy 05/22/2017 Cervical spinal stenosis 05/22/2017 Postlaminectomy syndrome of cervical region 01/2018 Chronic bilateral low back pain with bilateral s ciatica 05/22/2017 Lumbosacral spondylosis without myelopathy 05/22 Lesion of brain 01/11/2016 Headache Resolved Problems Problem Noted Date Diagnosed Date Resolved Date Cervical radiculopathy 05/22/201709/21 Spinal stenosis of lumbar re gion without neurogenic claudication 05/22/2017 09/21/2022 Social History Tobacco Use Types Packs/Day Years Used Date Smoking Tobacco: Former Cigarettes Smokeless Tobacco: Never Tobacco Cessation:Counseling Given: Not Answered Comments:Quit April 03, 2024 Alcohol Use Standard Drinks/Week Comments No 0 (1 standard drink = 0.6 oz pur e alcohol) Sex and Gender Information Value Date Recorded Sex Assigned at Not on file Legal Sex Male 4:58 PM SAFETY AND HEALTH CONSULTANT Gender Identity Not on file Sexual Orientation Not on file Last Filed Vital Signs Vital Sign Reading Time Taken Comments Blood Pressure 127/82 06/16/2024 7:13 AM SAFETY AND HEALTH CONSULTANT Pulse 73 06/16/2024 7:13 AM SAFETY AND HEALTH CONSULTANT Temperature 36.7 C (98 F) 07/21/2020 7:05 AM SAFETY AND HEALTH CONSULTANT Respiratory Rate 18 06/16/2024 7:13 AM SAFETY AND HEALTH CONSULTANT Oxygen Saturation 93% 06/16/2024 7:13 AM SAFETY AND HEALTH CONSULTANT Inhaled Oxygen Concentration - - Weight 84.4 kg (186 lb) 06/25/2019 8:01 AM SAFETY AND HEALTH CONSULTANT Height 177.8 cm (5' 10 ) 06/25/2019 8:01 AM SAFETY AND HEALTH CONSULTANT Body Mass Index 26.69 06/25/2019 8:01 AM SAFETY AND HEALTH CONSULTANT Plan of Treatment Not on file Goals Goal Patient Goal Type Associated Problems Recent Progress Patient-Stated? Author Increase physical activity Exercise Flor Frank, [place] Note: He states that he walks every day Medical Devices Implanted Type Area Television Equipment Operator Device Identifier Shelf Expiration Date Model / Serial / Lot [employer] [id number] Starclose Se 6fr Clip Vascular Device Closure Nitinol Sterile - [id number] Implanted:Qty: 1 on 06/25/2019 at [facility] [employer] [id number] / / Insurance [facility] H[facility]/PPO Address: [facility] [address] [place] [address] [facility] PPO [facility] H[facility]/PPO Address: [address] [address] [place] [address] [facility] H[facility]/PPO Address[facility] [address] [place] [address] R [facility]/PPO Address: [facility] [address] [place] [address] [facility] CHOICE [facility]US [facility] H[facility]/PPO Address: [facility] [address] [place] [address] Advance Directives For more information, please contact: [phone] * Full Code (Latest Code Status on File) Date Activated Date Inactivated Comments 06/25/2019 10:34 AM 06/25/2019 4:16 PM * Full Code Date Activated Date Inactivated Comments 06/25/2019 10:34 AM 06/25/2019 10:34 AM * Full Code Date Activated Date Inactivated Comments 06/25/2019 10:34 AM 06/25/2019 10:34 AM Care Teams Fitness Center Attendant Relationship Specialty Start Date End Date Kan Lanier MD [address] [place] [phone] PCP - General Family Medicine 05/22/17 [place] [id number] [facility] [address] [place] [address] Nurse Practitioner Pain Management 06/16/24
--- OUTSIDE RECORDS SUMMARY | 2024-06-30 14:10 | XMS_ITS | Patient Health Summary ---
Author Organization [facility] Address [address] [place] [address] Care Team Providers Care Reel Slitter Name Role Phone Obey Todd MD Unavailable Kan Lanier MD Primary Care Provider [phone] Azul Correa OD Unavailable Note from [facility],non-owned Affiliates and Associated Physician Practices is amultiple site organization consisting of ambulatory clinics and hospital sitesin [place], [place], [place] and [place]. This disclosure is being madepursuant to the Care Everywhere program and may not contain all information available regarding this patient. Last updated 18.[facility] Allergies * Amoxicillin * Nortriptyline(Psychiatric) -Medium Criticality * Penicillins(Anaphylaxis) -High Criticality * Tapentadol(Vision Changes) -Medium Criticality Medications * Be aware that medications may not be up to date on this document. Always verify current medications with the patient. * HYDROcodone-acetaminophen (NORCO) 10-325 MG tablet(Started 11/17/2017) Take 1 (one) tablet by mouth 4 times daily as needed * atorvastatin (Lipitor) 40 MG tablet(Started 10/01/2023) Take 1 (one) tablet by mouth at bedtime 3 refills by 09/30/2024 * carvedilol (Coreg) 6.25 MG tablet(Started 10/01/2023) Take 1 (one) tablet by mouth once daily 1 refill by 09/30/2024 * albuterol HFA (Proventil; Ventolin; Proair) 108 (90 Base) MCG/ACT inhaler (Started 01/02/2024) INHALE 2 PUFFS BY MOUTH EVERY 6 HOURS NEEDED * clopidogrel (plaVIX) 75 MG tablet(Started 05/05/2024) TAKE 1 TABLET BY MOUTH DAILY * Breo Ellipta 100-25 MCG/ACT inhaler(Started 05/16/2024) INHALE 1 PUFF BY MOUTH DAILY * zolpidem (Ambien) 10 MG tablet(Started 05/20/2024) Take 1 (one) tablet by mouth nightly as needed For insomnia. * amLODIPine (Norvasc) 2.5 MG tablet(Started 06/13/2024) TAKE 1 TABLET BY MOUTH TWICE DAILY * albuterol-ipratropium (Combivent Respimat) 20-100 MCG/ACT inhaler(Started 06/19/2024) Inhale 2 (two) puffs by mouth every 6 hours as needed for Wheezing (or chronic obstructive lung disease) * Combivent Respimat 20-100 MCG/ACT inhaler(Started 06/19/2024) INHALE 2 PUFFS BY MOUTH EVERY 6 HOURS NEEDED FOR WHEEZING OR CHRONIC OBSTRUCTIVE LUNG DISEASE 1 refill by 06/19/2025 * pioglitazone (Actos) 15 MG tablet(Started 06/25/2024) TAKE 1 TABLET BY MOUTH EVERY DAY Ended Medications* amLODIPine (Norvasc) 2.5 MG tablet(Started 10/01/2023) (Discontinued) Take 1 (one) tablet by mouth 2 times daily 1 refill by 09/30/2024 * Combivent Respimat 20-100 MCG/ACT inhaler(Started 04/22/2024)(Discontinued) INHALE 2 PUFFS BY MOUTH EVERY 6 HOURS NEEDED FOR WHEEZING OR CHRONIC OBSTRUCTIVE LUNG DISEASE 1 refill by 04/22/2025 * pioglitazone (Actos) 15 MG tablet(Started 05/16/2024)(Discontinued) TAKE 1 TABLET BY MOUTH EVERY DAY Active Problems Problem Noted Date Diagnosed Date [...] dependence with opioi d-induced disorder 01/18/2024 01/18/2024 Immunizations * INFLUENZA VACCINE, TRIV. (AFLURIA, FLUZONE TRIVALENT; 6MO+) (IIV3)(Given 01/12/2010) * COVID PFIZER 12+YR 30MCG/0.3mL(Given 03/23/2023) * COVID PFIZER BIVALENT 12Y+ 30mcg/0.3ML(Given 03/01/2022) * Covid Moderna primary monovalent 12+ yr 0.5mL(Given 05/04/2021, 10/25/2020, 09/27/2020) * INFLUENZA VACCINE(Given 03/14/2018) * INFLUENZA VACCINE, CELL CULTURE, QUADR. (FLUCELVAX QUADRIVALENT; 6MO+) (CCIIV4)(Given 05/04/2021) * INFLUENZA VACCINE, QUADR. (AFLURIA, FLUZONE QUADRIVALENT; 6MO+) (IIV4)(Given 03/15/2017) * INFLUENZA VACCINE, QUADR. (FLUZONE; FLULAVAL; FLUARIX; AFLURIA QUADRIVALENT; 6MO+), 0.5 ML (IIV4)(Given 03/23/2023, 02/28/2022, 02/19/2019) * PNEUMOCOCCAL PPSV23(Given 03/15/2017, 09/11/2008) * TD (AGE 7-ADULT)(Given 05/14/2003) * TDAP (7yrs+)(Given 10/30/2015, 03/15/2015) * iNFLUENZA VACCINE, RECOM-THOMPSON, QUADR. 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 Respiratory Rate 16 12/29/2020 2:27 PM CDT Oxygen Saturation 96% 01/18/2024 9:52 AM CDT Inhaled Oxygen Concentration - - Weight 78.9 kg (174 lb) 01/18/2024 9:52 AM CDT Height 177.8 cm (5' 10 ) 01/18/2024 9:52 AM CDT Body Mass Index 24.97 01/18/2024 9:52 AM CDT Procedures * HIV-1 HIV-2 ANTIBODY + HIV P24 AG PANEL(Performed 09/21/2023) Performed for Preventative health care * MICROALB/CREAT RATIO URINE RANDOM PANEL(Performed 09/21/2023) Performed for Controlled type 2 diabetes mellitus with hyperglycemia, without long-term current useof insulin ([facility]) * HEMOGLOBIN A1C(Performed 09/21/2023) Performed for Controlled type 2 diabetes mellitus with hyperglycemia, without long-term current useof insulin ([facility]), Preventative health care * PROSTATE SPECIFIC ANTIGEN SCREEN(Performed 09/21/2023) Performed for Preventative health care * LIPID PROFILE REFLEX LDL DIRECT(Performed 09/21/2023) Performed for Hyperlipidemia, unspecified hyperlipidemia type, Preventative health care * GENERAL HEALTH PANEL(Performed 09/21/2023) Performed for HTN (hypertension), benign, Controlled type 2 diabetes mellitus with hyperglycemia, without long-term current use of insulin ([facility]), Hyperlipidemia, unspecified hyperlipidemia type, Preventative health care * MICROALB/CREAT RATIO URINE RANDOM PANEL(Performed 04/26/2023) Performed for Controlled type 2 diabetes mellitus with hyperglycemia, without long-term current useof insulin ([facility]) * HEMOGLOBIN A1C(Performed 04/26/2023) Performed for Controlled type 2 diabetes mellitus with hyperglycemia, without long-term current useof insulin (HCC) * LIPID PROFILE REFLEX LDL DIRECT(Performed 04/26/2023) Performed for Hyperlipidemia, unspecified hyperlipidemia type * GENERAL HEALTH PANEL(Performed 04/26/2023) Performed for HTN (hypertension), benign, Controlled type 2 diabetes mellitus with hyperglycemia, without long-term current use of insulin (HCC), Hyperlipidemia, unspecified hyperlipidemia type * MICROALB/CREAT RATIO URINE RANDOM PANEL(Performed 09/19/2022) Performed for Controlled type 2 diabetes mellitus with hyperglycemia, without long-term current useof insulin (HCC) * HEMOGLOBIN A1C(Performed 09/19/2022) Performed for Controlled type 2 diabetes mellitus with hyperglycemia, without long-term current useof insulin ([facility]) * PROSTATE SPECIFIC ANTIGEN SCREEN(Performed 09/19/2022) Performed for Preventative health care * LIPID PROFILE REFLEX LDL DIRECT(Performed 09/19/2022) Performed for Hyperlipidemia, unspecified hyperlipidemia type * GENERAL HEALTH PANEL(Performed 09/19/2022) Performed for HTN (hypertension), benign, Controlled type 2 diabetes mellitus with hyperglycemia, without long-term current use of insulin (HCC), Hyperlipidemia, unspecified hyperlipidemia type * EYE EXAM(Performed 06/06/2022) * SARS-COV-2 (COVID-19)+INFLU A+B AG (AMB) POC(Performed 04/13/2022) Performed for Cough, unspecified type * MICROALB/CREAT RATIO URINE RANDOM PANEL(Performed 03/01/2022) Performed for Controlled type 2 diabetes mellitus with hyperglycemia, without long-term current useof insulin ([facility]) * HEMOGLOBIN A1C(Performed 03/01/2022) Performed for Controlled type 2 diabetes mellitus with hyperglycemia, without long-term current useof insulin ([facility]) * LIPID PROFILE REFLEX LDL DIRECT(Performed 03/01/2022) Performed for HTN (hypertension), benign, Controlled type 2 diabetes mellitus with hyperglycemia, without long-term current use of insulin ([facility]) * GENERAL HEALTH PANEL(Performed 03/01/2022) Performed for HTN (hypertension), benign, Controlled type 2 diabetes mellitus with hyperglycemia, without long-term current use of insulin ([facility]) * CT ANGIO BRAIN AND NECK(Performed 11/30/2021) Performed for Cerebellar stroke ([facility]) * CREATININE - POCT INTERFACED(Performed 11/30/2021) * MICROALB/CREAT RATIO URINE RANDOM PANEL(Performed 08/17/2021) Performed for Controlled type 2 diabetes mellitus with hyperglycemia, without long-term current useof insulin (HCC) * HEMOGLOBIN A1C(Performed 08/17/2021) Performed for Controlled type 2 diabetes mellitus with hyperglycemia, without long-term current useof insulin (HCC) * PROSTATE SPECIFIC ANTIGEN SCREEN(Performed 08/17/2021) Performed for Preventative health care * LIPID PROFILE REFLEX LDL DIRECT(Performed 08/17/2021) Performed for Preventative health care, HTN (hypertension), benign, Hyperlipidemia, unspecified hyperlipidemia type * GENERAL HEALTH PANEL(Performed 08/17/2021) Performed for Preventative health care, HTN (hypertension), benign * HEMOGLOBIN A1C(Performed 01/20/2021) Performed for Prediabetes * LIPID PROFILE REFLEX LDL DIRECT(Performed 01/20/2021) Performed for Lipid screening * GENERAL HEALTH PANEL(Performed 01/20/2021) Performed for HTN (hypertension), benign * CT ANGIO BRAIN AND NECK(Performed 12/08/2020) Performed for Cerebellar stroke (HCC) * CREATININE - POCT INTERFACED(Performed 12/08/2020) * LAB RESULTS ORDER(Performed 08/26/2020) * O+P PANEL(Performed 03/12/2020) Performed for Diarrhea of presumed infectious origin * CULTURE STOOL PANEL(Performed 03/12/2020) Performed for Diarrhea of presumed infectious origin * LIPID PROFILE REFLEX LDL DIRECT(Performed 01/22/2020) Performed for HTN (hypertension), benign * COMPREHENSIVE METABOLIC PANEL(Performed 01/22/2020) Performed for HTN (hypertension), benign * MICROALB/CREAT RATIO URINE RANDOM PANEL(Performed 01/22/2020) Performed for Prediabetes * HEMOGLOBIN A1C(Performed 01/22/2020) Performed for Prediabetes * LAB RESULTS ORDER(Performed 05/28/2019) * VAS RIGHT VENOUS DUPLEX LE(Performed 03/21/2019) Performed for Right leg swelling, Right leg pain * IMAGING/RADIOLOGY/XRAY RESULTS ORDER(Performed 03/19/2019) * LIPID PROFILE REFLEX LDL DIRECT(Performed 01/08/2019) Performed for Impaired fasting glucose * COMPREHENSIVE METABOLIC PANEL(Performed 01/08/2019) Performed for Impaired fasting glucose * MICROALB/CREAT RATIO URINE RANDOM PANEL(Performed 01/08/2019) Performed for Impaired fasting glucose * HEMOGLOBIN A1C(Performed 01/08/2019) Performed for Impaired fasting glucose * PATHOLOGY TISSUE EXAM (STL)(Performed 09/09/2018) Performed for Diagnosis unknown * COLONOSCOPY SCREEN(Performed 09/09/2018) * ENDOSCOPY, COLON, SCREENING(Performed 09/09/2018) Performed for Screening for colorectal cancer * LIPID PROFILE REFLEX LDL DIRECT(Performed 06/27/2018) Performed for HTN (hypertension), benign * PROSTATE SPECIFIC ANTIGEN SCREEN(Performed 06/27/2018) Performed for Special screening for malignant neoplasm of prostate * TSH(Performed 06/27/2018) Performed for HTN (hypertension), benign * CBC W AUTO DIFFERENTIAL(Performed 06/27/2018) Performed for HTN (hypertension), benign * COMPREHENSIVE METABOLIC PANEL(Performed 06/27/2018) Performed for HTN (hypertension), benign * HEMOGLOBIN A1C(Performed 06/27/2018) Performed for Impaired fasting glucose * XR CHEST 2VW(Performed 12/07/2017) Performed for Cough * HEPATITIS C ANTIBODY(Performed 03/15/2017) Performed for Encounter for hepatitis C screening test for low risk patient * LIPID PROFILE REFLEX LDL DIRECT(Performed 03/15/2017) Performed for HTN (hypertension), benign * HEMOGLOBIN A1C(Performed 03/15/2017) Performed for Impaired fasting glucose * PROSTATE SPECIFIC ANTIGEN SCREEN(Performed 03/15/2017) Performed for Special screening for malignant neoplasm of prostate * TSH(Performed 03/15/2017) Performed for HTN (hypertension), benign * CBC W AUTO DIFFERENTIAL(Performed 03/15/2017) Performed for HTN (hypertension), benign * COMPREHENSIVE METABOLIC PANEL(Performed 03/15/2017) Performed for HTN (hypertension), benign * STREP A SCREEN - POINT OF CARE (AMB) STL(Performed 02/14/2017) Performed for Adenopathy, cervical * PULSE OXIMETRY - POINT OF CARE (AMB)(Performed 02/06/2017) Performed for Strep pharyngitis * STREP A SCREEN - POINT OF CARE (AMB) STL(Performed 02/06/2017) Performed for Strep pharyngitis Results * (ABNORMAL) LIPID PROFILE REFLEX LDL DIRECT (09/21/2023 8:59 AM CDT) Only the most recent of10 resultswithin the time period is included. Cholesterol 146 100 - 199 mg/dL [facility] ACCOUNT BILL Triglycerides 137 0 - 149 mg/dL [facility] ACCOUNT BILL HDL Cholesterol 36(L) >39 mg/dL [facility] ACCOUNT BILL VLDL Calculated 24 5 - 40 mg/dL [facility] ACCOUNT BILL LDL Calculated 86 0 - 99 mg/dL [facility] ACCOUNT BILL Comment NOT AVAILABLE [facility] ACCOUNT BILL Comment:Result cannot be obt ained for this observation. Cholesterol/HDL Ratio 4.1 0.0 - 5.0 ratio [facility] ACCOUNT BILL Comment: T. Chol/HDL Ratio Men Women 1/2 Avg.Risk 3.4 3.3 Avg.Risk 5.0 4.4 2X Avg.Risk 9.6 7.1 3X Avg.Risk 23.4 11.0 LDL/HDL Ratio 2.4 0.0 - 3.6 ratio [facility] ACCOUNT BILL Comment: LDL/HDL Ratio Men Women 1/2 Avg.Risk 1.0 1.5 Avg.Risk 3.6 3.2 2X Avg.Risk 6.2 5.0 3X Avg.Risk 8.0 6.1 FASTING Blood BLOOD SPECIMEN / Unknown 09/21/2023 8:59 AM CDT 09/21/2023 Narrative Resulting Agency Comment Lab Testing performed at: [employer] [phone] Kan Lanier MD LAB - CHEMISTRY OR DERABLES [facility] ACCOUNT BILL [address] [place] [address] * HIV-1 HIV-2 ANTIBODY + HIV P24 [...] Resulting Agency Comment Lab Testing performed at: [facility] [phone] Kan Lanier MD LAB - CHEMISTRY OR DERABLES [facility] ACCOUNT BILL [address] [place] [address] * (ABNORMAL) GENERAL HEALTH PANEL (09/21/2023 8:59 AM CDT) Only the most recent of6 resultswithin the time period is included. Glucose 139(H) 70 - 99 mg/dL [facility] [...] Resulting Agency Comment Lab Testing performed at: [facility] [address] [phone] Kan Lanier MD LAB - CHEMISTRY OR DERABLES [facility] ACCOUNT BILL [address] [place] [address] * (ABNORMAL) MICROALB/CREAT RATIO URINE RANDOM PANEL (09/21/2023 8:59 AM CDT) Only the most recent of7 resultswithin the time period is included. Creatinine Urine 43.2 Not Estab. mg/dL [facility] [...] Resulting Agency Comment Lab Testing performed at: [facility] [address] [phone] Kan Lanier MD LAB - URINE CHEMIS TRY ORDERABLES Performing Organization Address [facility] de Phone Number [facility] ACCOUNT BILL [address] [place] [address] * (ABNORMAL) HEMOGLOBIN A1C (09/21/2023 8:59 AM CDT) Only the most recent of10 resultswithin the time period is included. Hemoglobin A1c 7.1(H) 4.8 - 5.6 % [facility] ACCOUNT BILL Comment: . Prediabetes: 5.7 - 6.4 Diabetes: >6.4 Glycemic control for adults with diabetes: <7.0 FASTING Blood BLOOD SPECIMEN / Unknown 09/21/2023 8:59 AM CDT 09/21/2023 Narrative Resulting Agency Comment Lab Testing performed at: [facility] [address] [phone] Kan Lanier MD LAB - CHEMISTRY OR DERABLES Performing Organization Address City/[facility] Co de Phone Number [facility] ACCOUNT BILL [address] [place] [address] * PROSTATE SPECIFIC ANTIGEN SCREEN (09/21/2023 8:59 AM CDT) Only the most recent of5 resultswithin the time period is included. PSA 0.6 0.0 - 4.0 ng/mL [facility] ACCOUNT BILL Comment: Maikol ECLIA methodology. . According to the [employer] [employer], Serum PSA should decrease and remain at undetectable levels after radical prostatectomy. The AUA defines biochemical recurrence as an initial PSA value 0.2 ng/mL or greater followed by a subsequent confirmatory PSA value 0.2 ng/mL or greater. Values obtained with different assay methods or kits cannot be used interchangeably. Results cannot be interpreted as absolute evidence of the presence or absence of malignant disease. FASTING Blood BLOOD SPECIMEN / Unknown 09/21/2023 8:59 AM CDT 09/21/2023 Narrative Resulting Agency Comment [facility] [address] [id number] Kan Lanier MD LAB - CHEMISTRY OR DERABLES [facility] ACCOUNT BILL [address] [place] [address] * EYE EXAM (06/06/2022) Anatomical Region Laterality Modality Other 06/06/2022 Narrative 06/06/2022 Ordered by an unspecified provider. Scanned Document SCANNING ONLY * SARS-COV-2 (COVID-19)+INFLU A+B AG (AMB) POC (04/13/2022 3:27 PM BUNDLE COLLECTOR) Influenza A Antigen Rapid Negative Negative [facility] Influenza B Antigen Rapid Negative Negative [facility] SARS-CoV-2 Ag Negative Negative [facility] COVID Internal Control Acceptable Acceptable [facility] Lot # [id number] [facility] Expiration Date 04/06/23 [facility] Instrument Serial Number . [facility] Microbiology SPECIMEN FROM NASAL FOSSAE / Unknown 04/13/2022 3:27 PM BUNDLE COLLECTOR Miranda Madrigal IUSS MASTER ANALYST-OVER THE [address] DRIVER LAB - POINT OF CARE ORDERABLES [facility] [address] [facility] [place] [address], [place] [phone] * CT ANGIO BRAIN AND NECK (11/30/2021 1:51 PM CDT) Only the most recent of2 resultswithin the time period is included. Anatomical Region Laterality Modality Head Computed Tomogra phy 11/30/2021 2:29 PM CDT Impressions 11/30/2021 3:31 PM CDT 1. 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 Findings remain grossly stable since prior from 12/08/2020. No large vessel occlusion around the [place]. 2. No significant vascular stenosis in the neck. Areas of calcific and noncalcific atherosclerotic plaque at the carotid bifurcation bilaterally, without significant stenosis. Edited by Dianne Rankin on 11/30/2021 3:01 PM *Reading Radiologist: Kendra Frye on 11/30/2021 at 3:31 PM Narrative 11/30/2021 3:31 PM CDT CTA OF THE HEAD AND NECK WITH AND WITHOUT IV CONTRAST DATE: 11/30/2021 1:34 PM HISTORY: Cerebral infarction, unspecified. TECHNIQUE: Multiple contiguous axial images were then obtained from the upper thoracic spine to the vertex during the administration of intravenous contrast material. Imaging post-processing equivalent to maximum intensity projection images of the intracranial and extracranial carotid and vertebrobasilar system were obtained. 3-D reconstructions were created by the technologist. COMPARISON: None CONTRAST: 80ml Isovue 370 FINDINGS: CTA OF HEAD: Scattered punctate foci of atherosclerotic calcification involving the distal internal carotid arteries bilaterally, without significant stenosis. The anterior and middle cerebral arteries are normal in appearance without high-grade stenosis, aneurysmal dilatation, or branch occlusion about the [place]. The region of the anterior communicating artery is unremarkable. 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 Also noted is atherosclerotic calcification involving the intracranial left vertebral artery. Regurgitant flow into the distal right vertebral artery at the level of the vertebrobasilar junction noted. There is markedly tortuous and ectatic basilar artery noted with extensive atherosclerotic calcification along the course. Findings remain grossly stable since prior from 12/08/2020. The posterior cerebral arteries are unremarkable. CTA OF THE NECK: The origins of the great vessels are widely patent. The cervical portions of the internal carotid are patent without focal narrowing according to NASCET criteria. Areas of calcific and noncalcific atherosclerotic plaque seen at the carotid bifurcation bilaterally, without significant stenosis. The common carotids and the cervical vertebral arteries are patent without focal narrowing. Dominant left vertebral artery. Chronic occlusion of the right vertebral artery at the level of the C1 vertebral body. INCIDENTAL FINDINGS: Emphysematous changes in visualized lung apices. Procedure Note Kendra Frye MD - 11/30/2021 CTA OF THE HEAD AND NECK WITH AND WITHOUT IV CONTRAST DATE: 11/30/2021 1:34 PM HISTORY: Cerebral infarction, unspecified. TECHNIQUE: Multiple contiguous axial images were then obtained from the upper thoracic spine to the vertex during the administration of intravenous contrast material. Imaging post-processing equivalent to maximum intensity projection images of the intracranial and extracranial carotid and vertebrobasilar system were obtained. 3-D reconstructions were created by the technologist. COMPARISON: None CONTRAST: 80ml Isovue 370 FINDINGS: CTA OF HEAD: Scattered punctate foci of atherosclerotic calcification involving the distal internal carotid arteries bilaterally, without significant stenosis. The anterior and middle cerebral arteries are normal in appearance without high-grade stenosis, aneurysmal dilatation, or branch occlusion about the [place]. The region of the anterior communicating artery is unremarkable. 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 Also noted is atherosclerotic calcification involving the intracranial left vertebral artery. Regurgitant flow into the distal right vertebral artery at the level of the vertebrobasilar junction noted. There is markedly tortuous and ectatic basilar artery noted with extensive atherosclerotic calcification along the course. Findings remain grossly stable since prior from 12/08/2020. The posterior cerebral arteries are unremarkable. CTA OF THE NECK: The origins of the great vessels are widely patent. The cervical portions of the internal carotid are patent without focal narrowing according to NASCET criteria. Areas of calcific and noncalcific atherosclerotic plaque seen at the carotid bifurcation bilaterally, without significant stenosis. The common carotids and the cervical vertebral arteries are patent without focal narrowing. Dominant left vertebral artery. Chronic occlusion of the right vertebral artery at the level of the C1 vertebral body. INCIDENTAL FINDINGS: Emphysematous changes in visualized lung apices. IMPRESSION 1. 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 Findings remain grossly stable since prior from 12/08/2020. No large vessel occlusion around the [place]. 2. No significant vascular stenosis in the neck. Areas of calcific and noncalcific atherosclerotic plaque at the carotid bifurcation bilaterally, without significant stenosis. Edited by Dianne Rankin on 11/30/2021 3:01 PM *Reading Radiologist: Kendra Frye on 11/30/2021 at 3:31 PM Henrik Milan MD CT ORDERABLES * CREATININE - POCT INTERFACED (11/30/2021 1:45 PM CDT) Only the most recent of2 resultswithin the time period is included. Pathologist [facility] Creatinine POCT 0.96 0.70 - 1.20 mg/dL 12/01/2021 8:17 AM CDT [facility] Blood BLOOD SPECIMEN / Unknown 11/30/2021 1:45 PM CDT 12/01/2021 8:16 AM CDT Henrik Milan MD LAB - POINT OF CARE ORDERABLES [facility] [address] [place] [address] * LAB RESULTS ORDER (08/26/2020) Only the most recent of2 resultswithin the time period is included. Provider Unknown LAB - THERAPEUTIC DR GRISSOM MONITORING ORDERABLES * O+P PANEL (03/12/2020 12:35 PM CDT) O+P Exam Final report [facility] INSURANCE BILL Comment: These results were obtained using wet preparation(s) and trichrome stained smear. This test does not include testing for Cryptosporidium parvum, Cyclospora, or Microsporidia. Result 1 [facility] INSURANCE BILL Comment: No ova, cysts, or parasites seen. . One negative specimen does not rule out the possibility of a parasitic infection. Stool STOOL SPECIMEN / Unknown 03/12/2020 12:35 PM CDT 03/12/2020 Narrative Resulting Agency Comment Lab Testing performed at: [facility] [address] [phone] Desiree Knight IUSS MASTER ANALYST-[address] DRIVER LAB - [place] IOLOGY ORDERABLES Performing Organization Address [facility] de Phone Number [facility] INSURANCE BILL [address] [place] [address] * (ABNORMAL) CULTURE STOOL PANEL (03/12/2020 12:35 PM CDT) E coli Shiga Toxin EIA Negative Negative [facility] INSURANCE BILL Salmonella/Shige lla Screen Final report [facility] INSURANCE BILL Result 1 [facility] INSURANCE BILL Comment:No Salmonella or Demetra gella recovered. Campylobacter Culture Final report(A) [facility] INSURANCE BILL Result 1 Campylobacter species(A) [facility] INSURANCE BILL Comment: Light growth Isolated Stool STOOL SPECIMEN / Unknown 03/12/2020 12:35 PM CDT 03/12/2020 Narrative Resulting Agency Comment Lab Testing performed at: [place] [id number] [facility] [phone] Desiree Knight IUSS MASTER ANALYST-OVER THE ROAD DRIVER LAB - MICROB IOLOGY ORDERABLES Performing Organization Address [facility] de Phone Number [facility] INSURANCE BILL [address] [place] [address] * (ABNORMAL) COMPREHENSIVE METABOLIC PANEL (01/22/2020 10:09 AM CDT) Only the most recent of4 resultswithin the time period is included. Glucose 114(H) 70 - 105 mg/dL [facility] ACCOUNT BILL BUN 13 8.4 - 25.7 mg/dL [facility] ACCOUNT BILL Creatinine 1.01 0.72 - 1.25 mg/dL [facility] ACCOUNT BILL eGFR by MDRD >60 >60 mL/min/1.7 3m2 [facility] ACCOUNT BILL eGFR by MDRD >60 >60 mL/min/1.7 3m2 [facility] ACCOUNT BILL Sodium 141 136 - 145 mmol/L [facility] ACCOUNT BILL Potassium 5.0 3.5 - 5.1 mmol/L [facility] ACCOUNT BILL Chloride 103 98 - 107 mmol/L [facility] ACCOUNT BILL CO2 29 23 - 31 mmol/L [facility] ACCOUNT BILL Calcium 9.8 8.4 - 10.4 mg/dL [facility] ACCOUNT BILL Protein Total 7.1 6.4 - 8.3 gm/dL [facility] ACCOUNT BILL Albumin 4.5 3.5 - 5.2 gm/dL [facility] ACCOUNT BILL Bilirubin Total 0.6 0.2 - 1.2 mg/dL [facility] ACCOUNT BILL Alkaline Phosphatase 105 40 - 150 U/L [facility] ACCOUNT BILL AST 17 5 - 34 U/L [facility] ACCOUNT BILL ALT 14 0 - 61 U/L [facility] ACCOUNT BILL Blood BLOOD SPECIMEN / Unknown 01/22/2020 10:09 AM CDT 01/22/2020 Narrative Resulting Agency Comment Lab Testing performed at: [facility] [address] [place] [phone] Kan Laneir MD LAB - CHEMISTRY OR DERABLES [facility] ACCOUNT BILL [address] [place] [address] * VAS RIGHT VENOUS DUPLEX LE (03/21/2019 9:18 AM BUNDLE COLLECTOR) Anatomical Region Laterality Modality Intravascular Ul trasound 03/21/2019 9:06 AM BUNDLE COLLECTOR Narrative Procedure Note Vidal Christina Sr., MD - 03/21/2019 [facility] [address] [place] [address] Lower Extremity Venous Ultrasound Report Pat.Name: THANH MEDRANO Pat.ID: [id number] St.Date: 03/21/2019 Refer.MD: Kan Lanier Exam Time: 9:06:00 AM Study Type:LE Venous Age: 12 1965,53Y Sex: MALE Sonogrphr: Maverick Ray RVT, BOBBY Pat. Stat.:Outpatient CPT - 4: 30998 Reason for Study: Swelling -Leg, right, Pain -Leg, right Procedures: Lower Extremity Venous - Right Race: 1 Visit ID: [id number] ++++++++++++++++++++++++++++++++++++ SUMMARY: ++++++++++++++++++++++++++++++++++++ No evidence of deep or superficial venous thrombosis or insufficiency of the right lower extremity. Pulsatile flow in the proximal major veins is likely indicative of central venous hypertension. ++++++++++++++++++++++++++++++++++++ FINDINGS: ++++++++++++++++++++++++++++++++++++ Procedure: Venous duplex imaging of the right lower extremity was performed using color flow and spectral Doppler analysis. The contralateral common femoral vein was also examined. Study Quality: This study is of adequate technical quality. Rt Leg: All vessels seen appear patent and compressible. There was spontaneous and pulsatile flow seen in the common femoral and femoral veins of the right lower extremity. Appropriate augmentation with distal compression. No evidence of reflux with proximal compression. The left common femoral vein demonstrated pulsatile and spontaneous flow. Signed 03/21/2019 10:30 AM Vidal Christina MD, [facility] Kan Lanier MD VASCULAR LAB ORDER DIETER * IMAGING RADIOLOGY XRAY RESULTS ORDER (03/19/2019) Anatomical Region Laterality Modality Other Scanned Document IMAGING * GROSS + MICRO EXAM (STL) (09/09/2018 3:33 PM CDT) Case Report Surgical Pathology Report Case: [id number] Authorizing Provider: Percy Gary MD Collected: 09/09/2018 03:33 PM Ordering Location: [facility] Received: 09/10/2018 07:06 AM Pathologist: Asha Maher MD Specimen: Polyp Rectosigmoid, x6; using hot snare and cold bx 09/11/2018 10:42 AM CDT [facility] Final Diagnosis Rectosigmoid polyps, biopsy: -- Hyperplastic polyps 09/11/2018 10:42 AM CDT [facility] Gross Description The specimen is received fixed in formalin in one container, labeled with the patient's name and rectosigmoid polyp x6 using hot snare and cold bx and consists of multiple irregularly-shaped fragments of soft, pink-vargas tissue ranging in greatest dimension from 0.7 to 0.2 cm. The specimen is submitted in toto in cassette A1. MR/ns 09/11/2018 10:42 AM CDT [facility] Disclaimer All histochemical and/or immunohistochemical results are interpreted with controls that demonstrate appropriate staining reactions before reporting results. Note on use of immunocytochemistry reagents: This test was developed and its performance characteristic determined by [facility], Department of Laboratory Medicine. It has not been cleared or approved by the U.S. Food and Drug Administration (FDA). The FDA has determined that such clearance or approval is not necessary. The test is used for clinical purpose. It should not be regarded as investigational or for research. This laboratory is certified to perform high complexity testing. 09/11/2018 10:42 AM T [facility] Embedded Images 09/11/2018 10:42 AM CDT [facility] Pathology/Cytolo gy POLYP / Unknown 09/09/2018 3:33 PM CDT 09/10/2018 7:06 AM CDT Percy Gary MD LAB - PATHOLOGY/CYT OLOGY ORDERABLES [facility] [address] [place] [address] * ENDOSCOPY, COLON, SCREENING (09/09/2018 2:28 PM CDT) Report Endoscopy POC _ Patient Name: Thanh Medrano Procedure Date: 09/09/2018 2:28 PM Date of [...] by the physician, the nurse and the informatics nurse specialist in the procedure room. Mental Status Examination: [...] the patient. Procedure Code(s): --- Professional --- 60365, Colonoscopy, flexible; with removal of tumor(s), polyp(s), or other lesion(s) by snare technique 32089, 59, Colonoscopy, flexible; with biopsy, single or multiple --- Technical --- 04765, Colonoscopy, flexible; with removal of tumor(s), polyp(s), or other lesion(s) by snare technique 20243, 59, Colonoscopy, flexible; with biopsy, single or multiple Diagnosis Code(s): --- Professional --- Z12.11, Encounter for screening for malignant neoplasm of colon K62.1, Rectal polyp D12.5, Benign neoplasm of sigmoid colon --- Technical --- Z12.11, Encounter for screening for malignant neoplasm of colon K62.1, Rectal polyp D12.5, Benign neoplasm of sigmoid colon CPT copyright 2017 [employer]. All rights reserved. The codes documented in this report are preliminary and upon hims coder review may be revised to meet current compliance requirements. Dr. Percy Gary MD Percy Gary MD 09/09/2018 3:42:45 PM This report has been signed electronically. Number of Addenda: 0 Note Initiated On: 09/09/2018 2:28 PM [facility] 09/09/2018 2:28 PM CDT Percy Gary MD GI PROCEDURE ORDERA [facility] [place] [address] * (ABNORMAL) CBC W AUTO DIFFERENTIAL (06/27/2018 8:52 AM BUNDLE COLLECTOR) Only the most recent of2 resultswithin the time period is included. WBC 10.4 4.4 - 10.7 x10E9/L [facility] ACCOUNT BILL RBC 4.68 3.80 - 5.40 x10E12/L [facility] ACCOUNT BILL Hemoglobin 15.2 12.0 - 17.6 gm/dL [facility] ACCOUNT BILL Hematocrit 47.3 35.2 - 51.7 % [facility] ACCOUNT BILL MCV 101.1(H) 80.7 - 98.3 fl [facility] ACCOUNT BILL MCH 32.5 26.7 - 34.0 pg [facility] ACCOUNT BILL MCHC 32.1 30.8 - 35.9 gm/dL [facility] ACCOUNT BILL RDW 13.2 12.1 - 14.9 % [facility] ACCOUNT BILL Platelet Count 224 153 - 416 x10E9/L [facility] ACCOUNT BILL Comment:MPV FL BLOOD ([facility]) 1 1.6 fl 9.4-12.9 Granulocytes % 60.6 44.0 - 73.0 % [facility] ACCOUNT BILL Lymphocytes % 20.1 20.0 - 43.0 % [facility] ACCOUNT BILL Monocytes % 6.5 5.0 - 13.0 % [facility] ACCOUNT BILL Eosinophils % 12.0(H) 0.0 - 6.0 % [facility] ACCOUNT BILL Basophils % 0.6 0.0 - 2.0 % [facility] ACCOUNT BILL Granulocytes Absolute 6.29 2.01 - 7.14 x10E9/L [facility] ACCOUNT BILL Lymphocytes Absolute 2.08 1.07 - 3.94 x10E9/L [facility] ACCOUNT BILL Monocytes Absolute 0.67 0.26 - 1.07 x10E9/L [facility] ACCOUNT BILL Eosinophils Absolute 1.24(H) 0 - 0.47 x10E9/L [facility] ACCOUNT BILL Basophils Absolute 0.06 0 - 0.08 x10E9/L [facility] ACCOUNT BILL Immature Granulocytes 0.2 0 - 1 % [facility] ACCOUNT BILL Immature Granulocytes Absolute 0.02 0.00 - 0.06 x10E9/L [facility] ACCOUNT BILL nRBC 0 /100 WBC [facility] ACCOUNT BILL Blood BLOOD SPECIMEN / Unknown 06/27/2018 8:52 AM BUNDLE COLLECTOR 06/27/2018 Narrative Resulting Agency Comment [facility] [address] [place] [phone] Kan Lanier MD LAB - HEMATOLOGY O RDERABLES [facility] ACCOUNT BILL [address] [place] [address] * TSH (06/27/2018 8:52 AM BUNDLE COLLECTOR) Only the most recent of2 resultswithin the time period is included. TSH 0.561 0.358 - 3.740 uIU/mL [facility] ACCOUNT BILL Blood BLOOD SPECIMEN / Unknown 06/27/2018 8:52 AM BUNDLE COLLECTOR 06/27/2018 Narrative Resulting Agency Comment [facility] [address] [place] [phone] Kan Lanier MD LAB - CHEMISTRY OR DERABLES [facility] ACCOUNT BILL [address] [place] [address] * XR CHEST 2VW (12/07/2017 9:00 AM CDT) Anatomical Region Laterality Modality Chest Radiographic Tigist ging 12/07/2017 9:08 AM CDT Impressions 12/07/2017 9:08 AM CDT No active disease. Reading Radiologist: Ulisses Patterson MD on 12/07/2017 at 9:08 AM Narrative 12/07/2017 9:08 AM CDT 2 View CXR Indications: Cough and congestion PA and lateral views of the chest were obtained. Comparison: none The heart is not enlarged. The aorta is normal in caliber. There is mild hyperinflation of the lung suther[place]. The lungs are clear. There is no confluent infiltrate or effusion. There is no pneumothorax. The pulmonary vascularity is normal. No mass or adenopathy is seen. Procedure Note Ulisses Patterson MD - 12/07/2017 2 View CXR Indications: Cough and congestion PA and lateral views of the chest were obtained. Comparison: none The heart is not enlarged. The aorta is normal in caliber. There is mild hyperinflation of the lung sutherland. The lungs are clear. There is no confluent infiltrate or effusion. There is no pneumothorax. The pulmonary vascularity is normal. No mass or adenopathy is seen. IMPRESSION No active disease. Reading Radiologist: Ulisses Patterson MD on 12/07/2017 at 9:08 AM Kan Lanier MD DIAGNOSTIC IMAGING ORDERABLES * HEPATITIS C ANTIBODY (03/15/2017 8:59 AM CDT) Hepatitis C Antibody Non Reactive Non Reactive [facility] ACCOUNT BILL Comment: Non Reactive - Antibodies to Hepatitis C virus (HCV) were no t detected, result does not exclude early acute HCV infection. FASTING Blood BLOOD SPECIMEN / Unknown 03/15/2017 8:59 AM CDT 03/15/2017 Narrative Resulting Agency Comment [facility] [address] [facility] [phone] Kan Lanier MD LAB - CHEMISTRY OR DERABLES [facility] ACCOUNT BILL [address] [place] [address] * STREP A SCREEN - POINT OF CARE (AMB) STL (02/14/2017) Only the most recent of2 resultswithin the time period is included. Strep A Rapid POCT Negative Negative Strep A Internal Control Present Lot # [id number] Expiration Date 09/29/2018 Throat ENTIRE THROAT (SURFACE REGION OF NECK) / Unknown 02/14/2017 Alesha Chavez APRN-OVER THE ROAD DRIVER LAB - POINT OF CAR E ORDERABLES * PULSE OXIMETRY - POINT OF CARE (AMB) (02/06/2017) Oximetry POCT 0 - 100 97% QC Verified Yes Blood BLOOD SPECIMEN / Unknown 02/06/2017 Alesha Chavez APRN-OVER THE RO[address] DRIVER LAB - POINT OF CAR E ORDERABLES Care Teams Reel Slitter Relationship Specialty Start Date End Date Kan Lanier MD [address] [place] [address] PCP - General 04/03/19 Obey Todd MD Anesthesiology-Pain Management 03/15/17 Azul Correa, OD [address] [place] [address] Silk Screen Etcher 01/18/24
--- OUTSIDE RECORDS SUMMARY | 2024-06-30 14:10 | XMS_ITS | Referral Summary ---
Author Organization [facility] Address [address] [place] [address] Care Team Providers Care Audio Experience Expert Name Role Phone Obey Todd MD Unavailable Kan Lanier MD Primary Care Provider [phone] Azul Correa OD Unavailable Source Comments [facility],non-owned Affiliates and Associated Physician Practices is amultiple site organization consisting of ambulatory clinics and hospital sitesin [place], [place], [place] and [place]. This disclosure is being madepursuant to the Care Everywhere program and may not contain all information available regarding this patient. Last updated 18.[facility] Encounters Date Type Department Care Team Description 06/23/[address] [address] Kan Lanier MD Refill Request 06/19/[address] [phone] Kan Lanier MD MEDICATION REFILL 06/18/[address] [address] Desiree Knight APRN-LATHE SETUP OPERATOR Refill Request 06/17/[address] [place] [address] Kan Lanier MD Refill Request 06/13/[address] [address] Kan Lanier MD Refill Request 05/20/[address] [address] Kan Lanier MD MEDICATION REFILL 05/15/[address] [address] Kan Lanier MD Refill Request 05/09/[address] [address] Kan Lanier MD Refill Request 05/02/[address] [phone] Kan Lanier MD Refill Request 04/19/[address] [phone] Desiree Knight, PROCUREMENT ENGINEER-LATHE SETUP OPERATOR Refill Request from Last 3 Months Allergies Active Allergy [...] with opioi d-induced disorder 01/18/2024 01/18/2024 Immunizations Name Administration Dates Next Due INFLUENZA [...] RECOM-THOMPSON, QUADR. (FLUBLOCK QUADRIVALENT; 18Y+) (RIV4) 04/07/2020 Social History Tobacco Use Types Packs/Day Years [...] 36.6 C (97.8 F) 04/13/2022 3:02 PM EDUCATION PROGRAM SPECIALIST Respiratory Rate 16 12/29/2020 2:27 PM CDT Oxygen Saturation 96% 01/18/2024 9:52 AM CDT Inhaled Oxygen Concentration - - Weight 78.9 kg (174 lb) 01/18/2024 9:52 AM CDT Height 177.8 cm (5' 10 ) 01/18/2024 9:52 AM CDT Body Mass Index 24.97 01/18/2024 9:52 AM CDT Plan of Treatment Not on file Goals [...] Resulting Agency Comment Lab Testing performed at: [facility] [address] [facility] [phone] Kan Lanier MD LAB - CHEMISTRY OR DERABLES [facility] ACCOUNT BILL [address] [place] [address] * (ABNORMAL) GENERAL HEALTH PANEL (09/21/2023 8:59 [...] Resulting Agency Comment Lab Testing performed at: [facility] [id number] Kan Lanier MD LAB - CHEMISTRY OR DERABLES Performing Organization Address [facility] Co de Phone Number [facility] ACCOUNT BILL [address] [place] [address] * (ABNORMAL) MICROALB/CREAT RATIO URINE RANDOM PANEL [...] Resulting Agency Comment Lab Testing performed at: [facility] [phone] Kan Lainer MD LAB - URINE CHEMIS TRY ORDERABLES Performing Organization Address City/[facility]/ZIP Co de Phone Number [facility] ACCOUNT BILL [address] [place] [address] * (ABNORMAL) HEMOGLOBIN A1C (09/21/2023 8:59 AM CDT) Hemoglobin A1c 7.1(H) 4.8 - 5.6 % [facility] ACCOUNT BILL Comment: . Prediabetes: 5.7 - 6.4 Diabetes: >6.4 Glycemic control for adults with diabetes: <7.0 FASTING Blood BLOOD SPECIMEN / Unknown 09/21/2023 8:59 AM CDT 09/21/2023 Narrative Resulting Agency Comment Lab Testing performed [facility]: [facility] [address] [facility] [phone] Kan Lanier MD LAB - CHEMISTRY OR DERABLES [facility] ACCOUNT BILL [address] [place] [address] * EYE EXAM (06/06/2022) Anatomical Region Laterality Modality Other 06/06/2022 Narrative 06/06/2022 Ordered by an unspecified provider. Scanned Document SCANNING ONLY * ENDOSCOPY, COLON, SCREENING (09/09/2018 2:28 PM CDT) Pathologist [facility] Report Endoscopy POC _ Patient Name: Thanh Brocko Procedure Date: 09/09/2018 2:28 PM Date [...] by the physician, the nurse and the city editor in the procedure room. Mental Status Examination: [...] the patient. Procedure Code(s): --- Professional --- 87500, Colonoscopy, flexible; with removal of tumor(s), polyp(s), or other lesion(s) by snare technique 19860, 59, Colonoscopy, flexible; with biopsy, single or multiple --- Technical --- 42545, Colonoscopy, flexible; with removal of tumor(s), polyp(s), or other lesion(s) by snare technique 45365, 59, Colonoscopy, flexible; with biopsy, single or multiple Diagnosis Code(s): --- Professional --- Z12.11, Encounter for screening for malignant neoplasm of colon K62.1, Rectal polyp D12.5, Benign neoplasm of sigmoid colon --- Technical --- Z12.11, Encounter for screening for malignant neoplasm of colon K62.1, Rectal polyp D12.5, Benign neoplasm of sigmoid colon CPT copyright 2017 [employer]. All rights reserved. The codes documented in this report are preliminary and upon trigonometry tutor review may be revised to meet current compliance requirements. Dr. Percy Gary MD Percy Gary MD 09/09/2018 3:42:45 PM This report has been signed electronically. Number of Addenda: 0 Note Initiated On: 09/09/2018 2:28 PM [facility] 09/09/2018 2:28 PM CDT Percy Gary MD GI PROCEDURE ORDERA BLES Performing Organization Address City/[facility]/ZIP Co de Phone Number [facility] [place] [address] * HEPATITIS C ANTIBODY (03/15/2017 8:59 AM CDT) Hepatitis C Antibody Non Reactive Non Reactive [facility] ACCOUNT BILL Comment: Non Reactive - Antibodies to Hepatitis C virus (HCV) were no t detected, result does not exclude early acute HCV infection. FASTING Blood BLOOD SPECIMEN / Unknown 03/15/2017 8:59 AM CDT 03/15/2017 Narrative Resulting Agency Comment [address] [phone] Kan Lanier MD LAB - CHEMISTRY OR DERABLES [facility] ACCOUNT BILL [address] [place] [address] from Last 3 Months or Most Recently Relevant to Health Maintenance Care Teams Audio Experience Expert Relationship Specialty Start Date End Date Kan Lanier MD [address] [place] [address] PCP - General 04/03/19 Obey Todd MD Anesthesiology-Pain Management 03/15/17 Azul Correa OD [address] [place] [address] Laborer [place] 01/18/24
--- OUTSIDE RECORDS SUMMARY | 2024-06-30 14:10 | XMS_ITS | Clinical Summary ---
Author Organization [facility] Address [address] [place] [id number] Care Team Providers Care Bottle House Cleaners Supervisor Name Role Phone Kan Lanier MD Primary Care Provider [phone] Oscar Meier [employer] FORCES SPECIALIST Unavailable [phone] Allergies Active Allergy Reactions Criticality Noted Date [...] by mouth daily 4 Active HYDROcodone-eric taminophen ([place]) 10-325 mg per tabletIndicatio ns:Pain Take 1 tablet by mouth every 6 (six) hours as needed for pain 120 tablet 5 07/17/19 25 Active HYDROcodone-eric taminophen ([place]) 10-325 mg per tabletIndicatio ns:Pain Take 1 tablet by mouth every 6 (six) hours as needed for pain 120 tablet 5 08/16/19 25 Active lisinopriL (PRINIVIL,ZESTR [place]) 10 mg tablet Take 1 tablet (10 mg total) by mouth daily 3 06/16/19 25 Discontinu ed(Therapy completed) HYDROcodone-eric taminophen ([place]) 10-325 mg per tabletIndicatio ns:Pain Take 1 [...] re gion without neurogenic claudication 05/22/2017 09/21/2022 Encounters Date Type Department Care Team Description 06/16/2024 6:46 AM DISTILLATION OPERATOR HELPER - 06/16/2024 11:59 PM DISTILLATION OPERATOR HELPER Hospital Encounter [facility] [address] [place] [address] Dudak, Oscar S., [employer] SPECIALIST Cervicalgia (Primary Dx); Cervical spinal stenosis; Postlaminectomy syndrome of cervical region Discharge Disposition: Discharge to home or self care 04/14/2024 6:54 AM DISTILLATION OPERATOR HELPER - 04/14/2024 11:59 PM DISTILLATION OPERATOR HELPER Hospital Encounter [facility] [address] [place] [phone] Oscar Meier NP Cervicalgia (Primary Dx); Cervical spinal stenosis; Spondylosis of cervical joint without myelopathy; Postlaminectomy syndrome of cervical region Discharge Disposition: Discharge to home or self care from Last 3 Months Surgical History Surgery Date Site/Laterality Comments NECK SURGERY x4 ANGIO SELECTIVE CAROTID USED CAR RENOVATOR RIGHT 06/25/2019 Right Medical History Medical History Date Comments Hypertension Asthma Neck pain Chronic pain disorder Headache Vertigo Diabetes mellitus (HCC) Type II Migraines ocular Hyperlipidemia TIA (transient ischemic attack) 05/27/2019 Left-sided numbness Social History Tobacco Use Types Packs/Day Years Used Date Smoking Tobacco: Former Cigarettes Smokeless Tobacco: Never Tobacco Cessation:Counseling Given: Not Answered Comments:Quit April 03, 2024 Alcohol Use Standard Drinks/Week Comments No 0 (1 standard drink = 0.6 oz pur e alcohol) Sex and Gender Information Value Date Recorded Sex Assigned at Not on file Legal Sex Male 4:58 PM DISTILLATION OPERATOR HELPER Gender Identity Not on file Sexual Orientation Not on file Obstetrics History Last Filed Vital Signs Vital Sign Reading Time Taken Comments Blood Pressure 127/82 06/16/2024 7:13 AM DISTILLATION OPERATOR HELPER Pulse 73 06/16/2024 7:13 AM DISTILLATION OPERATOR HELPER Temperature 36.7 C (98 F) 07/21/2020 7:05 AM DISTILLATION OPERATOR HELPER Respiratory Rate 18 06/16/2024 7:13 AM DISTILLATION OPERATOR HELPER Oxygen Saturation 93% 06/16/2024 7:13 AM DISTILLATION OPERATOR HELPER Inhaled Oxygen Concentration - - Weight 84.4 kg (186 lb) 06/25/2019 8:01 AM DISTILLATION OPERATOR HELPER Height 177.8 cm (5' 10 ) 06/25/2019 8:01 AM DISTILLATION OPERATOR HELPER Body Mass Index 26.69 06/25/2019 8:01 AM DISTILLATION OPERATOR HELPER Plan of Treatment Health Maintenance Due Date Last Done Comments Colon Cancer Screening-Colonoscopy 1965 Depression Screening 1963 Hepatitis C Screening 1963 Prostate Cancer Screening-PSA 1963 Hepatitis B Screening 1981 Regular Well Visit/Exam 18-64 1981 Zoster Vaccine (1 of 2) 2013 Pneumococcal vaccine <65 (2 of 2 - PCV) 03/15/2018 03/15/2017, 09/11/2008 Covid-19 Vaccine (4 - 2023-2 5 season) 2024 05/04/2021, 10/25/2020, 09/27/2020 Influenza Vaccine (#1) 2024 , 02/28/2022, 05/04/2021, Additional history exists DTaP/Tdap/Td Vaccine (3 - Td or Tdap) 10/29/2025 10/30/2015, 03/15/2015, 05/14/2003 Goals Goal Patient Goal Type Associated Problems Recent Progress Patient-Stated? Author Increase physical activity Exercise Flor Frank, RN Note: He states that he walks every day Medical Devices Implanted Type Area Media Buyer Device Identifier Shelf Expiration Date Model / Serial / Lot [employer] [id number] Starclose Se 6fr Clip Vascular Device Closure Nitinol Sterile - [id number] Implanted:Qty: 1 on 06/25/2019 at [facility] [employer] 1467 [id number] / / Insurance [facility] PPO [facility] [id number] [place] [address] [place] [address] [facility] Advance Directives For more information, please contact: [phone] * Full Code (Latest Code Status on File) Date Activated Date Inactivated Comments 06/25/2019 10:34 AM 06/25/2019 4:16 PM * Full Code Date Activated Date Inactivated Comments 06/25/2019 10:34 AM 06/25/2019 10:34 AM * Full Code Date Activated Date Inactivated Comments 06/25/2019 10:34 AM 06/25/2019 10:34 AM Care Teams Bottle House Cleaners Supervisor Relationship Specialty Start Date End Date Kan Lanier MD [address] [place] [id number] PCP - General Family Medicine 05/22/17 [place] [id number] [facility] [address] [place] [address] Nurse Practitioner Pain Management 06/16/24
--- OUTSIDE RECORDS SUMMARY | 2024-06-30 14:10 | XMS_ITS | Clinical Summary ---
Author Organization [facility] Address [address] [place] [address] Phone Care Team Providers Care X Ray Physician Name Role Phone Kan Lanier MD Primary Care Provider [phone] Allergies Active Allergy Reactions Criticality Noted Date Comments Amoxicillin Rash Nortriptyline Hcl Other (see Comments) 03/08/20 18 Brain rash Penicillins Shortness of Breath,Rash Tapentadol Other (see Comments) Medium 05/22/2017 splits vision splits vision Medications HYDROcodone-eric taminophen ([place]) 10-325 MG Tablet Take 1 Tab by mouth every 6 hours as needed for Pain. 120 Tab 0 6 Active zolpidem (AMBIEN) 10 MG Tablet Take 1 Tab by mouth nightly as needed. 30 Tab 0 6 Active QUINAPRIL HCL PO Take 10 mg by mouth daily. Active nebivolol (BYSTOLIC) 5 MG Tablet Take by mouth daily. Active meclizine (ANTIVERT) 25 MG Tablet Take 1 Tab by mouth 3 times daily as needed for Dizziness. 30 Tab 8 Active albuterol 108 (90 Base) MCG/ACT Aerosol Solution take 2 Puffs by inhalation every 6 hours as needed for Wheezing or Cough. 1 Inhaler 9 Active sildenafil citrate (Viagra) 100 MG Tablet Take 100 mg by mouth as needed. Active aspirin EC 81 MG Tablet Delayed Response Take 1 Tablet by mouth daily. 30 Each 1 Active atorvastatin (LIPITOR) 40 MG Tablet Take 1 Tablet by mouth nightly. 90 Tablet 1 Active amLODIPine (NORVASC) 2.5 MG Tablet Take 1 Tablet by mouth daily. Take half a pill BID 90 Tablet 1 1 Active clopidogrel (PLAVIX) 75 MG Tablet Take 1 Tablet by mouth daily. 90 Tablet 1 Active methylPREDNISol one (MEDROL DOSPACK) 4 MG Tablet Therapy Pack See product package insert for dosing schedule 21 Tablet 2 Active ipratropium-alb uterol (COMBIVENT RESPIMAT) 20-100 MCG/ACT Aerosol Solution take 2 Puffs by inhalation every 6 hours as needed for Wheezing. 4 g 4 Active Active Problems Problem Noted Date Diagnosed Date Tobacco dependence syndrome 08/13/2020 Chronic neck pain 08/13/2020 HTN (hypertension) 08/13/2020 Vertebral artery disease 08/13/2020 Occlusion of right vertebral artery 08/13/2020 Brain mass 12/15/2015 Visual field defect 12/15/2015 Asthma Chronic back pain Decreased testosterone level Anxiety Immunizations Immunization Administration Dates Next Due Influenza Vaccine greater than 3 yrs 01/12/2010 Pneumococcal Vaccine Adult - 23 Valent 9 TD VACCINE 05/14/2003 TDAP Vaccine 10/30/2015 Family History Medical History Relation Name Comments No Known Problems Brother No Known Problems Father No Known Problems Maternal Grandfather No Known Problems Maternal Grandmother No Known Problems Mother No Known Problems Paternal Grandfather No Known Problems Paternal Grandmother No Known Problems Sister 1 No Known Problems Sister 2 Relation Name Status Comments Brother Alive Father Other Maternal Grandfather Maternal Grandmother Mother Alive Paternal Grandfather Paternal Grandmother Sister 1 Alive Sister 2 Social History Tobacco Use Types Packs/Day Years Used Date Smoking Tobacco: Former Cigarettes 0.3 15 0 08/24/2005 - 08/24/2020 Smokeless Tobacco: Never Tobacco Cessation:Ready to Q uit: Yes Alcohol Use Standard Drinks/Week Comments No 0 (1 standard drink = 0.6 oz pur e alcohol) Sexually Active Control Partners Comments Yes Female Sex and Gender Information Value Date Recorded Sex Assigned at Not on file Legal Sex Male 7:32 PM CDT Gender Identity Not on file Sexual Orientation Not on file Last Filed Vital Signs Vital Sign Reading Time Taken Comments Blood Pressure 121/76 12/29/2023 4:22 PM CDT Pulse 72 12/29/2023 2:19 PM CDT Temperature 36.2 C (97.1 F) 12/29/2023 2:19 PM CDT Respiratory Rate 16 12/29/2023 3:13 PM CDT Oxygen Saturation 96% 12/29/2023 4:22 PM CDT Inhaled Oxygen Concentration - - Weight 84.4 kg (186 lb) 12/29/2023 2:19 PM CDT Height 177.8 cm (5' 10 ) 12/29/2023 2:19 PM CDT Body Mass Index 26.69 12/29/2023 2:19 PM CDT Plan of Treatment Health Maintenance Due Date Last Done Comments Hepatitis C Virus (HCV) Screening 1965 Colonoscopy 2008 Colorectal Cancer Screening 2008 Cologuard 2013 Immunochemical Fecal Occult Blood 2013 Zoster Immunization (1 of 2) 2013 Pneumococcal Immunization (50+ years) (2 of 2 - PCV) 03/15/2018 03/15/2017, 09/11/2008 PSA Discussion 2018 Respiratory Syncytial Virus (RSV) Immunization (Adult) (1 - Risk 60-74 years 1-dose series) 2023 Influenza Immunization (#1) 01/13/202403/14, 02/28/2022, 05/04/2021, Additional history exists SARS-COV-2 Immunization ( season) 2024 03/23/2023, 03/01/2022, 11/30/2021, Additional history exists Td Immunization Every 10 Years (Adults With 1 Tdap) 10/29/2025 10/30/2015, 03/15/2015, 05/14/2003 Pneumococcal Immunization Combined Discontinued 03/15/2017, 09/11/2008 Hepatitis B Immunization Aged Out No longer eligible based on patient's age to complete this topic Meningococcal Immunization (ACWY) Aged Out No longer eligible based on patient's age to complete this topic Rotavirus Immunization Aged Out No lo nger eligible based on patient's age to complete this topic Insurance [facility] Advance Directives * Full Code (Latest Code Status on File) Date Activated Date Inactivated Comments 08/13/2020 9:16 PM 08/14/2020 4:07 PM CPR-Full Treat ment: FULL ARREST: Attempt Resuscitation/CPR wit intubation and mechanical ventilation. PRE-ARREST: Use entire range of life support measures to stabilize the patient. Care Teams X Ray Physician Relationship Specialty Start Date End Date Kan Lanier MD [address] [place] [id number] PCP - General Family Medicine 03/08/18
== END 2024-06-30 13:10 | disposition home or self-care (01) ==
PROVIDERS: Emergency Provider Registered Nurse
DX: J18.9 Pneumonia, unspecified organism (principal); Z20.822 Contact with and (suspected) exposure to COVID-19; Z87.891 Personal history of nicotine dependence; E11.9 Type 2 diabetes mellitus without complications; I10 Essential (primary) hypertension; E78.00 Pure hypercholesterolemia, unspecified; J44.9 Chronic obstructive pulmonary disease, unspecified; Z86.73 Personal history of transient ischemic attack (TIA), and cerebral infarction without residual deficits
CPT/HCPCS: 71046; 87426; 87804; 99213; G0463